=== PATIENT | female | born 1950 | race Caucasian/White ===

== ENCOUNTER 2016-03-30 09:48 | Emergency (ER) | payer MEDICARE ==
[2016-03-30 12:24] LABS: Hematocrit 42 % (35-47); Hemoglobin 14.1 g/dl (12.0-16.0); Mean Corpuscular HGB Conc 33 g/dl (31-36); Mean Corpuscular Hemoglobin 30 pg (27-31); Mean Corpuscular Volume 91 fL (80-97); Mean Platelet Volume 9 um3 (7.4-10.4); Red Blood Count 4.67 10^6/ul (4.0-5.4); Red Cell Distribution Width 14 % (10.5-15); White Blood Count 7.9 10^3/ul (3.5-10.8)
[2016-03-30 12:34] LABS: BUN/Creatinine Ratio 10.1 (8-20); Calcium 9.4 mg/dL (8.6-10.3); EGFR African American 72.4 (>60); EGFR Non-African American 56.3 (>60); Globulin 3.5 g/dL (2-4); Magnesium 2.2 mg/dL (1.9-2.7); Total Bilirubin 0.5 mg/dL (0.2-1.0); Total Protein 7.5 g/dL (6.4-8.9)
[2016-03-30 12:36] LABS: Troponin I 0.01 ng/mL (<0.04)
[2016-03-30 12:43] LABS: TSH (Thyroid Stimulating Horm) 2.22 mcIU/mL (0.34-5.60)
[2016-03-30 13:55] VITALS: BP 122/60
--- NOTE | 2016-03-31 07:46 | ED ---
Santo Wyatt Adam, scribed for Sony Fox MD on 03/30/16 at 1201 . Palpitations / Dysrhythmia - HPI Summary HPI Summary: Pt is a 65 year old female presenting with an episode of palpitations last night. She went to bed at 23:30 last night and as she lied down she states that she felt her heart racing and beating irregularly. After 30 minutes of continued palpitations she called Family Medicine and was told to check her pulse, which was in the 70's. The pt was able to fall back asleep and when she woke up this morning she did not feel any palpitations. She called her doctor again in the morning and was told that she should come to the hospital for a heart evaluation. She denies any lightheadedness, diaphoresis, CP, SOB, or nausea. Pt has a sinus infection and has been taking azithromycin. She has taken 3 doses so far and has 2 remaining. PMHx of GERD. FMHx of DM and HTN. - History of Current Complaint Chief Complaint: EDDysrhythmPalp Time Seen by Provider: 03/30/16 11:47 Hx Obtained From: Patient Onset/Duration: Sudden Onset, Lasting Minutes, Resolved Severity Initially: Moderate Severity Currently: None Character: Fast, Irregular, Pounding Aggravating: Nothing Alleviating: Rest Associated Signs & Symptoms: Negative - Allergy/Home Medications Allergies/Adverse Reactions: Allergies Allergy/AdvReac Type Severity Reaction Status Date / Time Amoxicillin Allergy Mild Rash Verified 06/28/15 09:26 Codeine AdvReac Severe made her Verified 06/28/15 09:26 hyper PMH/Surg Hx/FS Hx/Imm Hx Endocrine/Hematology History: Denies: Hx Diabetes Cardiovascular History: Denies: Hx Hypertension, Hx Pacemaker/ICD GI History: Reports: Hx Gall Bladder Disease, Hx Gastroesophageal Reflux Disease History: Denies: Hx Renal Disease Musculoskeletal History: Reports: Hx Arthritis, Hx Back Problems Sensory History: Reports: Hx Cataracts, Hx Contacts or Glasses Denies: Hx Hearing Aid Opthamlomology History: Reports: Hx Cataracts, Hx Contacts or Glasses Neurological History: Reports: Hx Migraine, Other Neuro Impairments/Disorders - PAIN CLINIC PT Psychiatric History: Denies: Hx Panic Disorder - Cancer History Hx Chemotherapy: No Hx Radiation Therapy: No - Surgical History Surgery Procedure, Year, and Place: 1994 LOW BACK SURGERY L5 DISCECTOMY, [place]. 1989 OPEN CHOLECYSTECTOMY, [facility] [place]. 2009 RIGHT KNEE ARTHROSCOPIC SURGERY , [facility] [place]. 2010 LEFT EYE CATARACTS, [facility] [place] Hx Anesthesia Reactions: No Infectious Disease History: No Infectious Disease History: Denies: Traveled Outside the [place] in Last 30 Days - Family History Known Family History: Positive: Hypertension, Diabetes, Other - Breast CA - Social History Occupation: Retired Lives: With Family - Alcohol Use: Occasionally Hx Substance Use: No Substance Use Type: Reports: None Substance Use Comment - Amount & Last Used: oxycodone Hx Tobacco Use: No Smoking Status (MU): Never Smoked Tobacco Review of Systems Negative: Fever, Skin Diaphoresis Positive: Palpitations. Negative: Chest Pain Negative: Shortness Of Breath Positive: Nausea All Other Systems Reviewed And Are Negative: Yes Physical Exam Triage Information Reviewed: Yes Vital Signs On Initial Exam: Initial Vitals Temp Pulse Resp BP Pulse Ox 97.6 F 88 16 152/89 99 03/30/16 09:54 03/30/16 09:54 03/30/16 09:54 03/30/16 09:54 03/30/16 09:54 Vital Signs Reviewed: Yes Appearance: Positive: Well-Appearing, No Pain Distress Skin: Positive: Warm, Skin Color Reflects Adequate Perfusion, Dry Head/Face: Positive: Normal Head/Face Inspection Eyes: Positive: Normal ENT: Positive: Normal ENT inspection Neck: Positive: Supple, Nontender Respiratory/Lung Sounds: Positive: Clear to Auscultation, Breath Sounds Present Cardiovascular: Positive: RRR Abdomen Description: Positive: Nontender, Soft Bowel Sounds: Positive: Present Musculoskeletal: Positive: Normal Neurological: Positive: Normal Psychiatric: Positive: Normal, Affect/Mood Appropriate - [place] Coma Scale Coma Scale Total: 15 Diagnostics - Vital Signs Vital Signs Temp Pulse Resp BP Pulse Ox 03/30/16 09:54 97.6 F 88 16 152/89 99 - Laboratory Lab Results: Lab Results 03/30/16 03/30/16 03/30/16 Range/Units 11:30 11:30 11:30 WBC 7.9 (3.5-10.8) 10^3/ul RBC 4.67 (4.0-5.4) 10^6/ul Hgb 14.1 (12.0-16.0) g/dl Hct 42 (35-47) % MCV 91 (80-97) fL MCH 30 (27-31) pg MCHC 33 (31-36) g/dl RDW 14 (10.5-15) % Plt Count 299 (150-450) 10^3/ul MPV 9 (7.4-10.4) um3 Neut % (Auto) 62.3 (38-83) % Lymph % (Auto) 28.3 (25-47) % [place] % (Auto) 7.7 (1-9) % Eos % (Auto) 0.8 (0-6) % Baso % (Auto) 0.9 (0-2) % Absolute Neuts (auto) 4.9 (1.5-7.7) 10^3/ul Absolute Lymphs (auto) 2.2 (1.0-4.8) 10^3/ul Absolute Monos (auto) 0.6 (0-0.8) 10^3/ul Absolute Eos (auto) 0.1 (0-0.6) 10^3/ul Absolute Basos (auto) 0.1 (0-0.2) 10^3/ul Absolute Nucleated RBC 0.01 10^3/ul Nucleated RBC % 0.1 Sodium 142 (133-145) mmol/L Potassium 4.0 (3.5-5.0) mmol/L Chloride 110 (101-111) mmol/L Carbon Dioxide 27 (22-32) mmol/L Anion Gap 5 (2-11) mmol/L BUN 10 (6-24) mg/dL Creatinine 0.99 H (0.51-0.95) mg/dL Est GFR ( Amer) 72.4 (>60) Est GFR (Non-Af Amer) 56.3 (>60) BUN/Creatinine Ratio 10.1 (8-20) Glucose 90 (70-100) mg/dL Lactic Acid 1.1 (0.5-2.0) mmol/L Calcium 9.4 (8.6-10.3) mg/dL Magnesium 2.2 (1.9-2.7) mg/dL Total Bilirubin 0.50 (0.2-1.0) mg/dL AST 19 (13-39) U/L ALT 18 (7-52) U/L Alkaline Phosphatase 58 (34-104) U/L Troponin I 0.01 (<0.04) ng/mL Total Protein 7.5 (6.4-8.9) g/dL Albumin 4.0 (3.2-5.2) g/dL Globulin 3.5 (2-4) g/dL Albumin/Globulin Ratio 1.1 (1-3) TSH 2.22 (0.34-5.60) mcIU/mL Result Diagrams: 03/30/16 11:30 03/30/16 11:30 Lab Statement: Any lab studies that have been ordered have been reviewed, and results considered in the medical decision making process. - EKG 09:55 Cardiac Rate: NL - 74 BPM EKG Rhythm: Sinus Rhythm - Normal - Additional Comments Diagnostic Additional Comments: Troponin I - 0.01 Course/Dx - Course Course Of Treatment: Henrietta Patten presented having had palpitations last night in the context of taking azithromycin for a sinus infection which is improving. She was monitored here and her W/U including troponin was negative. Zithromax can cause palpitations and I recommended switching antibiotics to Cipro. - Diagnoses Provider Diagnoses: Medication reaction Discharge - Discharge Plan Condition: Stable Disposition: HOME Prescriptions: Cefpodoxime Proxetil 200 mg PO BID #[id number] souleymane Patient Education Materials: Antibiotic Medication Allergy (ED) Referrals: Abdelrahman Ponce MD [Primary Care Provider] - Additional Instructions: Follow up with Dr. Ponce. The documentation as recorded by the Santo jara Adam accurately reflects the service I personally performed and the decisions made by me, Sony Fox MD.
== END 2016-03-30 13:54 | disposition home or self-care (01) ==
LOC: ED 09:48
DX: T36.3X5A Adverse effect of macrolides, initial encounter (principal); R00.2 Palpitations; R11.0 Nausea; Y92.9 Unspecified place or not applicable; Z87.19 Personal history of other diseases of the digestive system
CPT/HCPCS: 36415; 80053; 83605; 83735; 84443; 84484; 85025; 93005; 99282

== ENCOUNTER 2016-04-02 03:56 | Emergency (ER) | payer MEDICARE ==
[2016-04-02] MEDS ORDERED: Albuterol/Ipratropium NEB.SOL* Albuterol 2.5 MG/Ipratropium 0.5 MG 3 ML ONE (05:01)
[2016-04-02] MEDS ORDERED: Aspirin Low Dose CHEW TAB* 81 MG PO ONE (05:01)
[2016-04-02] MEDS ORDERED: Albuterol/Ipratropium NEB.SOL* Albuterol 2.5 MG/Ipratropium 0.5 MG 3 ML INH ONE (05:06)
[2016-04-02] MEDS ORDERED: guaiFENesin/CODIEN 100MG-10MG* 5 ML UDC PO ONE (05:06)
[2016-04-02] MEDS ORDERED: guaiFENesin LIQ* 100 MG/5 ML UDC PO ONE (06:09)
[2016-04-02] MEDS ORDERED: guaiFENesin LIQ* 100 MG/5 ML UDC ONE (06:12)
[2016-04-02] MEDS ORDERED: Levofloxacin TAB* 500 MG PO ONE (06:35)
[2016-04-02 06:55] LABS: Hematocrit 41 % (35-47); Hemoglobin 13.5 g/dl (12.0-16.0); Mean Corpuscular HGB Conc 33 g/dl (31-36); Mean Corpuscular Hemoglobin 30 pg (27-31); Mean Corpuscular Volume 91 fL (80-97); Mean Platelet Volume 9 um3 (7.4-10.4); Red Blood Count 4.48 10^6/ul (4.0-5.4); Red Cell Distribution Width 14 % (10.5-15); White Blood Count 11.8 10^3/ul (3.5-10.8)
[2016-04-02 07:04] LABS: Urine Bacteria 1+ (Absent); Urine Bilirubin Negative (Negative); Urine Glucose Negative (Negative); Urine Nitrite Negative (Negative)
[2016-04-02 07:13] LABS: Albumin 3.8 g/dL (3.2-5.2); BUN/Creatinine Ratio 11.9 (8-20); EGFR African American 64.8 (>60); EGFR Non-African American 50.4 (>60); Globulin 3.2 g/dL (2-4); Potassium 3.2 mmol/L (3.5-5.0); Total Bilirubin 0.6 mg/dL (0.2-1.0)
[2016-04-02 07:15] LABS: Troponin I 0.01 ng/mL (<0.04)
--- NOTE | 2016-04-02 07:59 | RAD ---
INDICATION: Shortness of breath. COMPARISON: Chest x-ray dated September 29, 2011 TECHNIQUE: Single AP portable view of the chest was obtained. FINDINGS: Image quality is compromised due to the relative inferiority of a portable chest x-ray. The heart and mediastinum exhibit normal size and contour. There is mild calcification at the arch of the aorta. The lungs are grossly clear. There is no evidence of a large pleural effusion. Visualized bones are normal for the patient's age. IMPRESSION: No radiographic evidence for acute cardiopulmonary abnormality on this portable chest x-ray.
[2016-04-02 08:54] VITALS: BP 120/70
--- NOTE | 2016-04-02 14:58 | ED ---
Cooper Wyatt Matthew, scribed for Terrance Yanez MD on 04/02/16 at 0828 . Progress - Progress Note Progress Note: Sign out by Dr. Rivera c/o of cough, sob, and wheezing in the middle of the night. Was administered bronchodilators, cough medicine, albuterol, and Levaquin. Patient is feeling better. CXR reveals no pneumonia. Labs showed normal d-dimer and normal troponin. NO effusion, no sinus tenderness, oral mucosa dry, post nasal drip noted. Heart regular. Lungs show rhonchi and wheezing. Discussed discharge patient and will switch Abx to Levaquin 500mg daily for 10 days, add albuterol inhaler 2 puffs 4 times daily, and a 5 day course of prednisone. The patient is in stable condition and will be discharged home. Course/Dx - Diagnoses Provider Diagnoses: Acute asthmatic bronchitis, Sinusitis The documentation as recorded by the harshibCooper paul Matthew accurately reflects the service I personally performed and the decisions made by , Terrance Yanez MD.
--- NOTE | 2016-04-30 23:24 | ED ---
Manny Wyatt Aidan, scribed for Simon Rivera on 04/02/16 at 0502 . Throat Pain/Nasal Congestion - HPI Summary HPI Summary: 65 y/o female presents to the ED with a complaint of an acute, constant, moderate, productive cough that produces thick, clear phlegm and chest discomfort. Associated symptoms include congestion in the lungs, SOB, and a sore throat. Pt denies any swelling in the legs or fever. 6 days ago, she was diagnosed with a sinus infection. Pt does not smoke. - History of Current Complaint Chief Complaint: EDShortnessOfBreath Time Seen by Provider: 04/02/16 04:50 Hx Obtained From: Patient Onset/Duration: Sudden Onset, Lasting Days, Still Present Severity: Moderate Associated Signs And Symptoms: Negative: Negative - congestion in the lungs, SOB , and sore throat, chest discomfort from coughing too much Cough: Productive - producing thick, clear phlegm - Epiglottits Risk Factors Epiglottis Risk Factors: Negative - Allergies/Home Medications Allergies/Adverse Reactions: Allergies Allergy/AdvReac Type Severity Reaction Status Date / Time Amoxicillin Allergy Mild Rash Verified 06/28/15 09:26 Erythromycin Allergy Palpitation Verified 04/02/16 04:30 s Codeine AdvReac Severe made her Verified 06/28/15 09:26 hyper PMH/Surg Hx/FS Hx/Imm Hx Endocrine/Hematology History: Denies: Hx Diabetes Cardiovascular History: Denies: Hx Hypertension, Hx Pacemaker/ICD GI History: Reports: Hx Gall Bladder Disease, Hx Gastroesophageal Reflux Disease History: Denies: Hx Renal Disease Musculoskeletal History: Reports: Hx Arthritis, Hx Back Problems Sensory History: Reports: Hx Cataracts, Hx Contacts or Glasses Denies: Hx Hearing Aid Opthamlomology History: Reports: Hx Cataracts, Hx Contacts or Glasses Neurological History: Reports: Hx Migraine, Other Neuro Impairments/Disorders - PAIN CLINIC PT Psychiatric History: Denies: Hx Panic Disorder - Cancer History Hx Chemotherapy: No Hx Radiation Therapy: No - Surgical History Surgery Procedure, Year, and Place: 1994 LOW BACK SURGERY L5 DISCECTOMY, [place]. 1989 OPEN CHOLECYSTECTOMY, [facility]. 2009 RIGHT KNEE ARTHROSCOPIC SURGERY , [facility]. 2010 LEFT EYE CATARACTS, [facility] Hx Anesthesia Reactions: No Infectious Disease History: No Infectious Disease History: Denies: Traveled Outside the [place] in Last 30 Days - Family History Known Family History: Positive: Hypertension, Diabetes, Other - Breast CA - Social History Occupation: Retired Lives: With Family Alcohol Use: Occasionally Hx Substance Use: No Substance Use Type: Reports: None Substance Use Comment - Amount & Last Used: oxycodone Hx Tobacco Use: No Smoking Status (MU): Never Smoked Tobacco Review of Systems Constitutional: Negative Eyes: Negative Positive: Sore Throat. Negative: Epistaxis, Dental Pain, Ear Ache, Nasal Discharge Cardiovascular: Negative Positive: Shortness Of Breath, Cough, Other - congestion in the lungs, chest discomfort from coughing so much Gastrointestinal: Negative Genitourinary: Negative Musculoskeletal: Negative Skin: Negative Neurological: Negative Psychological: Normal All Other Systems Reviewed And Are Negative: Yes Physical Exam Triage Information Reviewed: Yes Vital Signs On Initial Exam: Initial Vitals Temp Pulse Resp BP Pulse Ox 97.8 F 88 24 151/87 100 04/02/16 04:01 04/02/16 04:01 04/02/16 04:01 04/02/16 04:01 04/02/16 04:01 Vital Signs Reviewed: Yes Appearance: Positive: Well-Appearing, No Pain Distress Skin: Positive: Warm, Skin Color Reflects Adequate Perfusion, Dry Head/Face: Positive: Normal Head/Face Inspection Eyes: Positive: EOMI, GAYLA ENT: Positive: Normal ENT inspection Neck: Positive: Supple, Nontender Respiratory/Lung Sounds: Positive: Clear to Auscultation, Breath Sounds Present Cardiovascular: Positive: RRR, Pulses are Symmetrical in both Upper and Lower Extremities Abdomen Description: Positive: Nontender, Soft Bowel Sounds: Positive: Present Musculoskeletal: Positive: Strength/ROM Intact Neurological: Positive: Sensory/Motor Intact, Alert, Oriented to Person Place, Time Psychiatric: Positive: Affect/Mood Appropriate AVPU Assessment: Alert Diagnostics - Vital Signs Vital Signs Temp Pulse Resp BP Pulse Ox 04/02/16 04:03 97.8 F 88 24 151/78 100 04/02/16 04:01 97.8 F 88 24 151/87 100 - Laboratory Lab Statement: Any lab studies that have been ordered have been reviewed, and results considered in the medical decision making process. EENT Course/Dx - Course Course Of Treatment: This is a 65 y/o female with an acute, constant, moderate, productive cough that produces thick, clear phlegm and chest discomfort. Associated symptoms include congestion in the lungs, SOB, and a sore throat. Pt denies any swelling in the legs or fever. 6 days ago, she was diagnosed with a sinus infection. Pt does not smoke. The patient will be diagnosed with dyspnea and pneumonia and she will be signed out to Dr. Yanez to follow up with labs. - Diagnoses Provider Diagnoses: Dyspnea, Pneumonia Discharge - Discharge Plan Condition: Stable Disposition: OTHER Discharge Disposition Comment: The patient will be signed out to Dr. Yanez to follow up on labs. Patient Education Materials: Dyspnea (ED), Pneumonia (ED) The documentation as recorded by the Manny jara Aidan accurately reflects the service I personally performed and the decisions made by Nicole hart Emmanuel.
== END 2016-04-02 08:51 | disposition home or self-care (01) ==
LOC: ED 03:56
DX: J45.909 Unspecified asthma, uncomplicated (principal); J32.9 Chronic sinusitis, unspecified; Z88.0 Allergy status to penicillin; Z88.5 Allergy status to narcotic agent
CPT/HCPCS: 36415; 71010; 80053; 81003; 81015; 83880; 84484; 85025; 85379; 85610; 85730; 87086; 87502; 93005; 94640; 94760; 99282; A9270-GY

== ENCOUNTER 2016-04-05 04:55 | Inpatient (IN) | payer MEDICARE ==
[2016-04-05] MEDS ORDERED: Albuterol/Ipratropium NEB.SOL* Albuterol 2.5 MG/Ipratropium 0.5 MG 3 ML INH ONE (05:15)
[2016-04-05] MEDS ORDERED: Aspirin Low Dose CHEW TAB* 81 MG PO ONE (05:15)
[2016-04-05] MEDS ORDERED: Ketorolac INJ* 30 MG/ML 1 ML VIAL IV ONE (05:15)
[2016-04-05] MEDS ORDERED: Ondansetron INJ* 2 MG/ML VIAL IV ONE (05:15)
[2016-04-05] MEDS ORDERED: Iodixanol* (CONTRAST) 320 MG/ML 100 ML SDV IV ONE ×2 (05:37→06:38)
[2016-04-05] MEDS ORDERED: Albuterol 2.5 MG/3 ML NEB.SOL* (0.083%) ONE (05:53)
[2016-04-05] MEDS ORDERED: Ipratropium 0.5MG/2.5ML NEB* 0.5 MG/2.5 ML NEB.SOLN ONE (05:57)
[2016-04-05 05:59] LABS: Hematocrit 45 % (35-47); Hemoglobin 14.7 g/dl (12.0-16.0); Mean Corpuscular HGB Conc 33 g/dl (31-36); Mean Corpuscular Hemoglobin 30 pg (27-31); Mean Corpuscular Volume 90 fL (80-97); Mean Platelet Volume 9 um3 (7.4-10.4); Red Blood Count 4.94 10^6/ul (4.0-5.4); Red Cell Distribution Width 14 % (10.5-15); White Blood Count 14.1 10^3/ul (3.5-10.8)
[2016-04-05 06:12] LABS: Albumin 4.1 g/dL (3.2-5.2); BUN/Creatinine Ratio 12.4 (8-20); Calcium 9.6 mg/dL (8.6-10.3); EGFR African American 62.1 (>60); EGFR Non-African American 48.3 (>60); Globulin 3.7 g/dL (2-4); Potassium 3.4 mmol/L (3.5-5.0); Total Bilirubin 0.4 mg/dL (0.2-1.0); Total Protein 7.8 g/dL (6.4-8.9)
[2016-04-05 06:24] LABS: Troponin I 0.04 ng/mL (<0.04)
[2016-04-05] MEDS ORDERED: Aspirin TAB* 325 MG PO ONE (07:06)
--- NOTE | 2016-04-05 07:10 | ED ---
Xin Wyatt SooYoung, scribed for NicoleSimon on 04/05/16 at 0515 . Respiratory - HPI Summary HPI Summary: Pt is a 65 y/o F who presents with worsening URI sx. Pt was seen by Dr. Rivera in ED three days ago for same sx. She states that currently, she's having difficulty breathing due to nasal congestion. Associated sx: BISHOP, leg pain, abd pain. She says she hasn't slept the past two nights. PSHx: gallbladder removal. - History of Current Complaint Stated Complaint: FLU LIKE SYMPTOMS Hx Obtained From: Patient Onset/Duration: Lasting Days, Still Present - Allergy/Home Medications Allergies/Adverse Reactions: Allergies Allergy/AdvReac Type Severity Reaction Status Date / Time Amoxicillin Allergy Mild Rash Verified 06/28/15 09:26 Erythromycin Allergy Palpitation Verified 04/02/16 04:30 s Codeine AdvReac Severe made her Verified 06/28/15 09:26 hyper PMH/Surg Hx/FS Hx/Imm Hx Previously Healthy: No Endocrine/Hematology History: Denies: Hx Diabetes Cardiovascular History: Denies: Hx Hypertension, Hx Pacemaker/ICD GI History: Reports: Hx Gall Bladder Disease, Hx Gastroesophageal Reflux Disease History: Denies: Hx Renal Disease Musculoskeletal History: Reports: Hx Arthritis, Hx Back Problems Sensory History: Reports: Hx Cataracts, Hx Contacts or Glasses Denies: Hx Hearing Aid Opthamlomology History: Reports: Hx Cataracts, Hx Contacts or Glasses Neurological History: Reports: Hx Migraine, Other Neuro Impairments/Disorders - PAIN CLINIC PT Psychiatric History: Denies: Hx Panic Disorder - Cancer History Hx Chemotherapy: No Hx Radiation Therapy: No - Surgical History Surgery Procedure, Year, and Place: 1994 LOW BACK SURGERY L5 DISCECTOMY, [place]. 1989 OPEN CHOLECYSTECTOMY, [facility] [place]. 2009 RIGHT KNEE ARTHROSCOPIC SURGERY , [facility] [place]. 2010 LEFT EYE CATARACTS, [facility] [place] Hx Anesthesia Reactions: No - Family History Known Family History: Positive: Hypertension, Diabetes, Other - Breast CA - Social History Occupation: Retired Lives: With Family Alcohol Use: Occasionally Hx Substance Use: No Substance Use Type: Reports: None Substance Use Comment - Amount & Last Used: oxycodone Hx Tobacco Use: No Smoking Status (MU): Never Smoked Tobacco Review of Systems Positive: Other - POS: NASAL CONGESTION Positive: Other - DIFFICULTY BREATHING DUE TO NASAL CONGESTION Positive: Abdominal Pain Positive: Other - POS: DIFFUSE LEG PAIN Positive: Headache All Other Systems Reviewed And Are Negative: Yes Physical Exam Triage Information Reviewed: Yes Vital Signs On Initial Exam: Initial Vitals Temp Pulse Resp BP Pulse Ox 99.0 F 99 22 125/78 96 04/05/16 04:57 04/05/16 04:57 04/05/16 04:57 04/05/16 04:57 04/05/16 04:57 Vital Signs Reviewed: Yes Appearance: Positive: Well-Appearing, No Pain Distress Skin: Positive: Warm, Skin Color Reflects Adequate Perfusion, Dry Head/Face: Positive: Normal Head/Face Inspection Eyes: Positive: EOMI, GAYLA ENT: Positive: Normal ENT inspection Neck: Positive: Supple, Nontender Respiratory/Lung Sounds: Positive: Wheezes Cardiovascular: Positive: RRR, Pulses are Symmetrical in both Upper and Lower Extremities Abdomen Description: Positive: Soft, Other: - TENDERNESS AT UMBILICAL Bowel Sounds: Positive: Present Musculoskeletal: Positive: Normal, Strength/ROM Intact - 4XFROM Neurological: Positive: Normal, Sensory/Motor Intact, Alert, Oriented to Person Place, Time Diagnostics - Vital Signs Vital Signs Temp Pulse Resp BP Pulse Ox 04/05/16 05:04 104 125/78 97 04/05/16 05:03 88 95 04/05/16 04:57 99.0 F 99 22 125/78 96 - Laboratory Lab Results: Lab Results 04/05/16 04/05/16 04/05/16 Range/Units 05:30 05:30 05:30 WBC 14.1 H (3.5-10.8) 10^3/ul RBC 4.94 (4.0-5.4) 10^6/ul Hgb 14.7 (12.0-16.0) g/dl Hct 45 (35-47) % MCV 90 (80-97) fL MCH 30 (27-31) pg MCHC 33 (31-36) g/dl RDW 14 (10.5-15) % Plt Count 293 (150-450) 10^3/ul MPV 9 (7.4-10.4) um3 Neut % (Auto) 81.8 (38-83) % Lymph % (Auto) 11.4 L (25-47) % [place] % (Auto) 6.1 (1-9) % Eos % (Auto) 0.3 (0-6) % Baso % (Auto) 0.4 (0-2) % Absolute Neuts (auto) 11.5 H (1.5-7.7) 10^3/ul Absolute Lymphs (auto) 1.6 (1.0-4.8) 10^3/ul Absolute Monos (auto) 0.9 H (0-0.8) 10^3/ul Absolute Eos (auto) 0 (0-0.6) 10^3/ul Absolute Basos (auto) 0.1 (0-0.2) 10^3/ul Absolute Nucleated RBC 0.01 10^3/ul Nucleated RBC % 0 D-Dimer, Quantitative (Less Than 230) ng/mL Sodium 137 (133-145) mmol/L Potassium 3.4 L (3.5-5.0) mmol/L Chloride 103 (101-111) mmol/L Carbon Dioxide 24 (22-32) mmol/L Anion Gap 10 (2-11) mmol/L BUN 14 (6-24) mg/dL Creatinine 1.13 H (0.51-0.95) mg/dL Est GFR ( Amer) 62.1 (>60) Est GFR (Non-Af Amer) 48.3 (>60) BUN/Creatinine Ratio 12.4 (8-20) Glucose 87 (70-100) mg/dL Lactic Acid 1.1 (0.5-2.0) mmol/L Calcium 9.6 (8.6-10.3) mg/dL Total Bilirubin 0.40 (0.2-1.0) mg/dL AST 18 (13-39) U/L ALT 15 (7-52) U/L Alkaline Phosphatase 64 (34-104) U/L Troponin I 0.04 H* (<0.04) ng/mL B-Natriuretic Peptide ( - 100) pg/mL Total Protein 7.8 (6.4-8.9) g/dL Albumin 4.1 (3.2-5.2) g/dL Globulin 3.7 (2-4) g/dL Albumin/Globulin Ratio 1.1 (1-3) Lipase 19 (11.0-82.0) U/L 04/05/16 04/05/16 Range/Units 05:30 05:30 WBC (3.5-10.8) 10^3/ul RBC (4.0-5.4) 10^6/ul Hgb (12.0-16.0) g/dl Hct (35-47) % MCV (80-97) fL MCH (27-31) pg MCHC (31-36) g/dl RDW (10.5-15) % Plt Count (150-450) 10^3/ul MPV (7.4-10.4) um3 Neut % (Auto) (38-83) % Lymph % (Auto) (25-47) % [place] % (Auto) (1-9) % Eos % (Auto) (0-6) % Baso % (Auto) (0-2) % Absolute Neuts (auto) (1.5-7.7) 10^3/ul Absolute Lymphs (auto) (1.0-4.8) 10^3/ul Absolute Monos (auto) (0-0.8) 10^3/ul Absolute Eos (auto) (0-0.6) 10^3/ul Absolute Basos (auto) (0-0.2) 10^3/ul Absolute Nucleated RBC 10^3/ul Nucleated RBC % D-Dimer, Quantitative 261 H (Less Than 230) ng/mL Sodium (133-145) mmol/L Potassium (3.5-5.0) mmol/L Chloride (101-111) mmol/L Carbon Dioxide (22-32) mmol/L Anion Gap (2-11) mmol/L BUN (6-24) mg/dL Creatinine (0.51-0.95) mg/dL Est GFR ( Amer) (>60) Est GFR (Non-Af Amer) (>60) BUN/Creatinine Ratio (8-20) Glucose (70-100) mg/dL Lactic Acid (0.5-2.0) mmol/L Calcium (8.6-10.3) mg/dL Total Bilirubin (0.2-1.0) mg/dL AST (13-39) U/L ALT (7-52) U/L Alkaline Phosphatase (34-104) U/L Troponin I (<0.04) ng/mL B-Natriuretic Peptide 51 ( - 100) pg/mL Total Protein (6.4-8.9) g/dL Albumin (3.2-5.2) g/dL Globulin (2-4) g/dL Albumin/Globulin Ratio (1-3) Lipase (11.0-82.0) U/L Result Diagrams: 04/05/16 05:30 04/05/16 05:30 Lab Statement: Any lab studies that have been ordered have been reviewed, and results considered in the medical decision making process. - Radiology CXR Xray Interpretation: No Acute Changes Radiology Interpretation Completed By: ED Physician Disposition - Course Course Of Treatment: MDM: A 65 y/o F presents with nasal congestion, BISHOP, abd and leg pain for past few days. Pt was seen three days ago in ED. Ordered Toradol and Zofran. Blood work shows elevated D-dimer. Trop at [address] of chest/abd/pelv is pending. - Diagnoses Provider Diagnoses: Abdominal pain, Ruled out PE, SOB (shortness of breath), ACS (acute coronary syndrome) - Physician Notifications Discussed Care Of Patient With: Dr. Whitaker, hospitalist Time Discussed With Above Provider: 06:50 Instructed by Provider To: Admit As Inpatient Discharge - Discharge Plan Condition: Stable Disposition: ADMITTED TO [facility] Referrals: Abdelrahman Ponce MD [Primary Care Provider] - The documentation as recorded by the Xin jara SooYoung accurately reflects the service I personally performed and the decisions made by , Simon Rivera.
--- NOTE | 2016-04-05 08:04 | RAD ---
INDICATION: Shortness of breath. COMPARISON: Chest x-ray dated April 02, 2016 TECHNIQUE: Single AP portable view of the chest was obtained. FINDINGS: Image quality is compromised due to the relative inferiority of a portable chest x-ray. The heart and mediastinum exhibit normal size and contour. There is mild peribronchial cuffing seen overlying the upper right hilum. The lungs are grossly clear. There is no evidence of a large pleural effusion. Visualized bones are normal for the patient's age. IMPRESSION: Mild peribronchial cuffing progressed since the previous chest x-ray can be seen in inflammatory lung disease.
--- NOTE | 2016-04-05 08:08 | RAD ---
HISTORY: Chest pain, shortness of breath COMPARISONS: None TECHNIQUE: Multiple contiguous axial CT scans of the chest were obtained after the administration of nonionic intravenous contrast, timed to the pulmonary arterial phase of contrast enhancement.. Coronal and sagittal multiplanar reformations are also submitted for review. FINDINGS: NECK AND THYROID: The lower neck and thyroid are unremarkable. CHEST WALL: There is no lower cervical, axillary, or supraclavicular lymphadenopathy by size criteria. HEART AND PERICARDIUM: The heart is unremarkable. AORTA AND PULMONARY VASCULATURE: There is no pulmonary arterial filling defect to suggest pulmonary embolism. There is no linear filling defect within the aorta to suggest aortic dissection. MEDIASTINUM: There is no mediastinal lymphadenopathy by size criteria. JACK: There is no hilar lymphadenopathy by size criteria. AIRWAY AND ESOPHAGUS: There is mild bibasilar bronchiectasis. There is peribronchial thickening, with occasional effacement of the distal airway presumably by mucus plugging, best seen on axial image 144 of series 4 in the right lower lobe LUNG PARENCHYMA: Is minimal dependent atelectasis in the right lung base. PLEURA: No pleural abnormalities are noted. UPPER ABDOMEN: The upper abdomen is unremarkable. BONES AND SOFT TISSUES: No bone or soft tissue abnormalities are noted. OTHER: None. IMPRESSION: 1. NO PULMONARY ARTERIAL FILLING DEFECT TO SUGGEST PULMONARY EMBOLISM. 2. MILD BIBASILAR BRONCHIECTASIS WITH PERIBRONCHIAL THICKENING AND MINIMAL MUCOUS PLUGGING..
[2016-04-05] MEDS ORDERED: Albuterol/Ipratropium NEB.SOL* Albuterol 2.5 MG/Ipratropium 0.5 MG 3 ML INH PRN (08:23)
[2016-04-05] MEDS ORDERED: Potassium Chlor TAB* 20 MEQ TAB.ER PO ONE (08:24)
[2016-04-05 08:31] LABS: Budding Yeast Present (Absent); Urine Bacteria 1+ (Absent); Urine Bilirubin Negative (Negative); Urine Glucose Negative (Negative); Urine Nitrite Negative (Negative)
[2016-04-05 08:45] LABS: Magnesium 1.9 mg/dL (1.9-2.7)
[2016-04-05] MEDS ORDERED: Fluticasone NASAL SPRAY 50MCG* 16 gm SPRAY BTL BOTH NARES SCH (09:00)
[2016-04-05] MEDS ORDERED: Oxymetazoline 0.05% NASAL SPR* 15 ML BTL BOTH NARES SCH (09:00)
[2016-04-05] MEDS: NS 0.9% 1000 ML* 1,000 ML IV SCH ×2 (09:15→21:18)
[2016-04-05] MEDS: Levofloxacin 500 MG IVPREMIX(* 500 MG/100 ML BAG IVPB SCH (09:15)
[2016-04-05] MEDS: Aspirin EC Low Dose* 81 MG TAB.EC PO SCH (09:17)
[2016-04-05] MEDS: guaiFENesin ER TAB 600 MG PO SCH ×2 (09:17→20:21)
[2016-04-05] MEDS: Lactobacillus Acidophilu (GG)* 1 CAP CAP PO SCH (09:32)
--- NOTE | 2016-04-05 09:44 | RAD ---
Indication: Abdominal pain, diverticulitis. CT of the abdomen and pelvis was performed after IV contrast administration. Coronal and sagittal reconstructed images were obtained. Administered 97.0 ml of VISAPAQUE 320 mgi/ml was given according to hospital protocol. The lung bases demonstrate no pleural fluid, nodules or masses. Heart is of normal size without evidence of pericardial effusion. The liver is normal in size. No focal lesions or intrahepatic duct dilatation is noted. The patient is status post cholecystectomy. The spleen is normal in size. The pancreas demonstrates no mass or pancreatic duct dilatation. The common duct is not dilated. No adrenal masses are noted. The kidneys demonstrate no hydronephrosis. No retroperitoneal lymphadenopathy is noted. No dilated loops of bowel are noted. CT of the pelvis demonstrates no retroperitoneal or pelvic lymphadenopathy. The colon is filled with stool. The uterus and ovaries are unremarkable. No hernias are noted. No dilated loops of bowel are noted. There is a defect in the anterior abdominal wall above the umbilicus in the epigastric area. There is omentum with small vessels noted in the hernia. The possibility of strangulation of the herniated omentum is not excluded. The bony structures are grossly unremarkable. Facet arthropathy at L3-4 and L4-5 is noted. IMPRESSION: 1. There is an anterior abdominal wall hernia containing omentum in the epigastric area as well as some small vascular structures. Mild infiltration of fat is noted. 2. No other masses or fluid collections are identified.
--- NOTE | 2016-04-05 11:37 | HP ---
HISTORY AND PHYSICAL: DATE OF ADMISSION: 04/05/16 PROVIDER: Malcom Cruz NP ATTENDING PHYSICIAN: Dr. Issa *(report dictated by Malcom Cruz NP). PRIMARY CARE PROVIDER: Dr. Ponce. CHIEF COMPLAINT: Worsening upper respiratory illness symptoms with complaints of productive cough, severe nasal congestion, abdominal pain, and burning with urination. HISTORY OF PRESENT ILLNESS: Ms. Patten is a 65-year-old female with a past medical history of GERD, who presents to the emergency department today with complaints of worsening upper respiratory illness symptoms, abdominal pain, and dysuria. Ms. Patten reports that she first developed a "cold" in the beginning of March and had rhinorrhea with nasal congestion for several weeks. She was diagnosed on March 27 with a sinus infection and put on either " azithromycin or erythromycin." She reports initially she felt better, then on March 30, she had palpitations and went to the emergency department where it was thought that she was having a reaction to the antibiotics and she was switched to cefpodoxime. She then returned to the emergency department on April 02, with worsening upper respiratory illness symptoms with cough, shortness of breath, wheezing, and was switched to Levaquin and put on prednisone 5-day course. Ms. Patten then reports that initially she felt better for a day, then returns today with worsening upper respiratory illness symptoms, biggest complaint is nasal congestion and that she cannot sleep for the past 2 days. She also reports burning with urination, generalized body aches, and abdominal "soreness." She reports that she has not been able to sleep since starting the prednisone. She denies fever, but reports chills. Decreased appetite, but has been able to drink fluids. No nausea, vomiting, or diarrhea. Denies sore throat or ear pain. Reports productive cough with thick white sputum. The patient denies chest pain or shortness of breath. The patient reports that she has been using her albuterol inhaler since prescribed 3 days ago and has been using it b.i.d. She does report relief after using the inhaler. The patient reports that her granddaughter who she has been watching every day was diagnosed with influenza 2 days ago through Urgent Care. Hospital Medicine was asked to evaluate the patient for admission due to the patient appears to be dehydrated and has an indeterminate troponin of 0.04. PAST MEDICAL HISTORY: 1. GERD. 2. Cataracts. PAST SURGICAL HISTORY: 1. Status post cholecystectomy. 2. Low back surgery, L5 diskectomy in [place], 1994. 3. Right knee arthroscopic surgery, 2009. HOME MEDICATIONS: 1. Aspirin 81 mg p.o. daily. 2. Ibuprofen 400 mg p.o. b.i.d. p.r.n. 3. Albuterol HFA inhaler 1 to 2 puffs INH q.6 hours p.r.n. 4. Nexium 42.3 mg p.o. q.a.m. 5. Levaquin 500 mg p.o. daily, started 04/02/16. 6. Prednisone 60 mg p.o. daily x5-day course. ALLERGIES: AMOXICILLIN, ERYTHROMYCIN, CODEINE. FAMILY HISTORY: Father had coronary artery disease and diabetes. SOCIAL HISTORY: Denies history of tobacco use. Rare alcohol use. No recreational drug use. The patient is retired and lives at home with her Pablo Patten, who is her healthcare proxy, #[phone]. REVIEW OF SYSTEMS: A 14-point review of systems was performed. All the pertinent positives and negatives are mentioned in the history of present illness. All the remaining systems are negative. The patient reports headache stating she had a terrible headache this morning which now is better after being given pain medication in the emergency department. PHYSICAL EXAMINATION GENERAL APPEARANCE: A 65-year-old female, lying on the emergency department stretcher, alert and oriented x3, in no acute distress. Appears to have nasal congestion and appearing mildly ill. VITAL SIGNS: Temperature 98.0, heart rate 83, respirations 18, O2 sat 100% on room air, blood pressure 146/72. HEENT: Head is normocephalic, atraumatic. Pupils are equal and reactive to light. Oropharynx is clear. No erythema or exudate noted. Dry mucous membranes. Good dentition. NECK: No cervical or supraclavicular lymphadenopathy. CARDIAC: S1, S2. No murmurs, rubs, or gallops appreciated. No lower extremity edema. 2+ DP pulses bilaterally. RESPIRATORY: No accessory muscle use. Lungs are clear to auscultation bilaterally. Good aeration throughout. ABDOMEN: Soft, nondistended. Normal bowel sounds x4. Mild tenderness around umbilicus. No guarding. MUSCULOSKELETAL: No clubbing or cyanosis is noted. Full range of motion in all extremities. Strength is 5/5 throughout. NEURO: Cranial nerves II through XII are intact. Moves all extremities equally. Sensation to lower extremities intact to light touch. PSYCH: Alert and oriented x3. SKIN: No rashes, lesions, or open wounds noted. DIAGNOSTIC STUDIES/LAB DATA: WBC is 14.1, RBC 4.94, Hgb 14.7, Hct 45, MCV 90, MCH 30, MCHC 33, RDW 14, platelet count 293. D-dimer 261. Sodium 137, potassium 3.4, chloride 103, carbon dioxide 24, anion gap 10, BUN 14, creatinine 1.13, glucose 87, lactic acid 1.1, calcium 9.6, magnesium 1.9. Total bilirubin 0.40, AST 18, ALT 15, alkaline phosphatase 64. Troponin 0.04. BNP 51. Total protein 7.8, albumin 4.1. Lipase 19. Urinalysis: Specific gravity 1.009, 1+ blood, 3+ leukocyte esterase, 1+ bacteria, squamous epithelial cells present high, yeast high, otherwise negative. Chest x-ray, impression: Mild peribronchial cuffing progressed since the previous chest x-ray can be seen, inflammatory lung disease. Chest, thorax CTA, impression: 1. No pulmonary arterial filling defect to suggest pulmonary embolism. 2. Mild bibasilar bronchiectasis with peribronchial thickening and minimal mucus plugging. Abdomen and pelvis CT pending at the time of dictation. EKG: Sinus rhythm with a rate of 99 with multiple premature complexes noted. No acute ischemic changes noted. ASSESSMENT AND PLAN: Ms. Patten is a 65-year-old female with a past medical history of gastroesophageal reflux disease, who presents to the emergency department with complaints of worsening upper respiratory illness symptoms, abdominal pain, dysuria, noted to have indeterminate troponin, and acute kidney injury. 1. Acute Bronchitis, possible sinusitis, Influenza? I suspect the patient has a acute bronchitis with possible sinus infection and Influenza. Will continue Levaquin that the patient was started on an outpatient. Decrease prednisone to 40 mg daily. Anna p.r.nAmanda, Renetta DM, probiotic. Influenza was negative on 04/02/16. Plan to recheck influenza due to granddaughter recently being diagnosed and will treat prophylaxis due to patients exposure and her presentation with body aches and flu like symptoms. 2. Acute kidney injury, most likely secondary to dehydration. We will give the patient normal saline at 100 mL an hour x2 L and recheck labs in the morning. 3. Hypokalemia. Give replacement now. Add on magnesium. Recheck labs in the morning. 4. Indeterminate troponin. Monitor on telemetry. The patient has no chest pain, low suspicion for acute coronary syndrome. Trend troponins and EKGs. 5. Dysuria. The patient did have a urine culture from 04/02/16 that had no growth. We will send another urine culture and await results. 6. Abdominal pain. Suspect this is secondary to coughing and musculoskeletal tenderness. CT of the abdomen and pelvis is pending at the time of the dictation. 7. Gastroesophageal reflux disease. Continue PPI. 8. DVT prophylaxis. Heparin subcu. 9. Code status. Full code. 10. Hospital status. Observation. TIME SPENT: Approximately 60 minutes was spent on this admission. MALCOM CRUZ NP CC: Dr. Ponce* [id number]/CPS #: [id number] MTDD
[2016-04-05] MEDS: Heparin VIAL(*) 5000 UNITS/ML VIAL (FIVE THOUSAND) SUBCUT SCH ×2 (13:04→21:20)
[2016-04-05] MEDS: predniSONE TAB* 20 MG PO SCH (13:04)
[2016-04-05] MEDS: Benzonatate CAP* 100 MG PO PRN (13:04)
[2016-04-05] MEDS: Oseltamivir CAP* 75 MG PO SCH (13:04)
[2016-04-06] MEDS: Benzonatate CAP* 100 MG PO PRN (02:51)
[2016-04-06 05:22] LABS: BUN/Creatinine Ratio 11.5 (8-20); Blood Urea Nitrogen 12 mg/dL (6-24); CO2 Carbon Dioxide 18 mmol/L (22-32); Chloride 107 mmol/L (101-111); EGFR African American 68.4 (>60); EGFR Non-African American 53.2 (>60); Glucose 87 mg/dL (70-100); Sodium 137 mmol/L (133-145)
[2016-04-06] MEDS: Heparin VIAL(*) 5000 UNITS/ML VIAL (FIVE THOUSAND) SUBCUT SCH ×3 (05:22→21:48)
[2016-04-06] MEDS: Omeprazole CAP* 20 MG PO SCH (05:22)
[2016-04-06 07:18] LABS: Hematocrit 46 % (35-47); Mean Corpuscular HGB Conc 33 g/dl (31-36); Mean Corpuscular Hemoglobin 31 pg (27-31); Mean Corpuscular Volume 94 fL (80-97); Mean Platelet Volume 10 um3 (7.4-10.4); Red Cell Distribution Width 14 % (10.5-15); White Blood Count 14.6 10^3/ul (3.5-10.8)
--- NOTE | 2016-04-06 07:57 | PN ---
Subjective Date of Service: 04/06/16 Interval History: patient reports slight improvement today but continues to feel unwell and does not feel like she can go home. Biggest compliant is cough, malaise. reports improved appetite today. Continues to have significant nasal congestion and pressure, productive cough with thick white/greenish sputum and nasal drainage. No fevers, chills, abdominal pain, N/V/D. Denies SOB or CP. No dizziness with ambulation. Objective Active Medications: Albuterol/Ipratropium (Duoneb Neb.Flaquita*) 1 neb INH Q4H PRN PRN Reason: SOB/WHEEZING Aspirin (Aspirin Ec Low Dose*) 81 mg PO DAILY [facility] Last Admin: 04/05/16 09:17 Dose: 81 mg Benzonatate (Tessalon Cap*) 100 mg PO BID PRN PRN Reason: COUGH Last Admin: 04/06/16 02:51 Dose: 100 mg Fluticasone Propionate (Flonase Nasal [place] 50mcg*) 2 spray BOTH NARES DAILY [facility] Guaifenesin/Dextromethorphan (Robitussin Dm*) 10 ml PO Q6H PRN PRN Reason: COUGH Heparin Sodium (Porcine) (Heparin Vial(*)) 5,000 units SUBCUT Q8HR [facility] Last Admin: 04/06/16 05:22 Dose: 5,000 units Levofloxacin/Dextrose (Levaquin 500 Mg Ivpremix(*)) 500 mg in 100 mls @ 100 mls /hr IVPB Q24H [facility] Stop: 04/07/16 08:59 Last Admin: 04/05/16 09:15 Dose: 100 mls/hr Sodium Chloride (Ns 0.9% 1000 Ml*) 1,000 mls @ 100 mls/hr IV PER RATE [facility] Lactobacillus Rhamnosus (Culturelle*) 1 cap PO DAILY [facility] Last Admin: 04/05/16 09:32 Dose: 1 cap Omeprazole (Prilosec Cap*) 20 mg PO 0600 [facility] Last Admin: 04/06/16 05:22 Dose: 20 mg Oseltamivir Phosphate (Tamiflu Cap*) 75 mg PO DAILY [facility] Stop: 04/14/16 09:01 Last Admin: 04/05/16 13:04 Dose: 75 mg Prednisone (Deltasone Tab*) 40 mg PO DAILY [facility] Last Admin: 04/05/16 13:04 Dose: 40 mg Vital Signs 04/05/16 04/05/16 04/05/16 08:00 08:39 09:43 Temperature 98.0 F Pulse Rate 89 83 Respiratory 20 18 17 Rate Blood Pressure 146/72 (mmHg) O2 Sat by Pulse 95 100 Oximetry 04/05/16 04/05/16 04/05/16 11:16 15:21 19:35 Temperature 98.9 F 98.2 F Pulse Rate 83 92 93 Respiratory 16 18 Rate Blood Pressure 141/76 128/84 (mmHg) O2 Sat by Pulse 95 98 91 Oximetry 04/05/16 04/06/16 04/06/16 20:00 00:07 04:10 Temperature 98.7 F 100.4 F Pulse Rate 93 108 Respiratory 18 20 20 Rate Blood Pressure 137/76 154/82 (mmHg) O2 Sat by Pulse 94 97 Oximetry 04/06/16 07:17 Temperature 99.0 F Pulse Rate 90 Respiratory 16 Rate Blood Pressure 121/46 (mmHg) O2 Sat by Pulse 93 Oximetry Oxygen Devices in Use Now: None Appearance: 65 yo female sitting up on the side of the bed appears mildly ill in NAD A+O x3 Eyes: No Scleral Icterus, PERRLA Ears/Nose/Mouth/Throat: NL Teeth, Lips, Gums, Mucous Membranes Moist Neck: NL Appearance and Movements; NL JVP, Trachea Midline Respiratory: Symmetrical Chest Expansion and Respiratory Effort, - - diminished bilaterally Cardiovascular: NL Sounds; No Murmurs; No JVD, RRR, No Edema Abdominal: NL Sounds; No Tenderness; No Distention Lymphatic: No Cervical Adenopathy Extremities: No Edema, No Clubbing, Cyanosis Skin: No Rash or Ulcers, No Nodules or Sclerosis Neurological: Alert and Oriented x 3, NL Sensation, NL Gait, NL Muscle Strength and Tone Lines/Tubes/Other Access: Clean, Dry and Intact Peripheral IV Nutrition: Taking PO's Result Diagrams: 04/06/16 06:07 04/06/16 06:07 Additional Lab and Data: Lab Results 04/05/16 04/05/16 04/05/16 Range/Units 05:30 05:30 05:30 WBC 14.1 H (3.5-10.8) 10^3/ul RBC 4.94 (4.0-5.4) 10^6/ul Hgb 14.7 (12.0-16.0) g/dl Hct 45 (35-47) % MCV 90 (80-97) fL MCH 30 (27-31) pg MCHC 33 (31-36) g/dl RDW 14 (10.5-15) % Plt Count 293 (150-450) 10^3/ul MPV 9 (7.4-10.4) um3 Neut % (Auto) 81.8 (38-83) % Lymph % (Auto) 11.4 L (25-47) % [place] % (Auto) 6.1 (1-9) % Eos % (Auto) 0.3 (0-6) % Baso % (Auto) 0.4 (0-2) % Absolute Neuts (auto) 11.5 H (1.5-7.7) 10^3/ul Absolute Lymphs (auto) 1.6 (1.0-4.8) 10^3/ul Absolute Monos (auto) 0.9 H (0-0.8) 10^3/ul Absolute Eos (auto) 0 (0-0.6) 10^3/ul Absolute Basos (auto) 0.1 (0-0.2) 10^3/ul Absolute Nucleated RBC 0.01 10^3/ul Nucleated RBC % 0 D-Dimer, Quantitative (Less Than 230) ng/mL Sodium 137 (133-145) mmol/L Potassium 3.4 L (3.5-5.0) mmol/L Chloride 103 (101-111) mmol/L Carbon Dioxide 24 (22-32) mmol/L Anion Gap 10 (2-11) mmol/L BUN 14 (6-24) mg/dL Creatinine 1.13 H (0.51-0.95) mg/dL Est GFR ( Amer) 62.1 (>60) Est GFR (Non-Af Amer) 48.3 (>60) BUN/Creatinine Ratio 12.4 (8-20) Glucose 87 (70-100) mg/dL Lactic Acid 1.1 (0.5-2.0) mmol/L Calcium 9.6 (8.6-10.3) mg/dL Total Bilirubin 0.40 (0.2-1.0) mg/dL AST 18 (13-39) U/L ALT 15 (7-52) U/L Alkaline Phosphatase 64 (34-104) U/L Troponin I 0.04 H* (<0.04) ng/mL B-Natriuretic Peptide ( - 100) pg/mL Total Protein 7.8 (6.4-8.9) g/dL Albumin 4.1 (3.2-5.2) g/dL Globulin 3.7 (2-4) g/dL Albumin/Globulin Ratio 1.1 (1-3) Lipase 19 (11.0-82.0) U/L 04/05/16 04/05/16 Range/Units 05:30 05:30 WBC (3.5-10.8) 10^3/ul RBC (4.0-5.4) 10^6/ul Hgb (12.0-16.0) g/dl Hct (35-47) % MCV (80-97) fL MCH (27-31) pg MCHC (31-36) g/dl RDW (10.5-15) % Plt Count (150-450) 10^3/ul MPV (7.4-10.4) um3 Neut % (Auto) (38-83) % Lymph % (Auto) (25-47) % [place] % (Auto) (1-9) % Eos % (Auto) (0-6) % Baso % (Auto) (0-2) % Absolute Neuts (auto) (1.5-7.7) 10^3/ul Absolute Lymphs (auto) (1.0-4.8) 10^3/ul Absolute Monos (auto) (0-0.8) 10^3/ul Absolute Eos (auto) (0-0.6) 10^3/ul Absolute Basos (auto) (0-0.2) 10^3/ul Absolute Nucleated RBC 10^3/ul Nucleated RBC % D-Dimer, Quantitative 261 H (Less Than 230) ng/mL Sodium (133-145) mmol/L Potassium (3.5-5.0) mmol/L Chloride (101-111) mmol/L Carbon Dioxide (22-32) mmol/L Anion Gap (2-11) mmol/L BUN (6-24) mg/dL Creatinine (0.51-0.95) mg/dL Est GFR ( Amer) (>60) Est GFR (Non-Af Amer) (>60) BUN/Creatinine Ratio (8-20) Glucose (70-100) mg/dL Lactic Acid (0.5-2.0) mmol/L Calcium (8.6-10.3) mg/dL Total Bilirubin (0.2-1.0) mg/dL AST (13-39) U/L ALT (7-52) U/L Alkaline Phosphatase (34-104) U/L Troponin I (<0.04) ng/mL B-Natriuretic Peptide 51 ( - 100) pg/mL Total Protein (6.4-8.9) g/dL Albumin (3.2-5.2) g/dL Globulin (2-4) g/dL Albumin/Globulin Ratio (1-3) Lipase (11.0-82.0) U/L Microbiology and Other Data: Microbiology 04/05/16 09:30 Influenza Types A,B Antigen (BRENDEN) - Final Nasal Specimen received for Influenza A/B Molecular testing Assess/Plan/Problems-Billing Assessment: Mrs. Patten is a 65 yo female with a PMH of GERD who presented 04/05 with c/o of worsening upper respiratory symptoms, abdominal pain and dysuria found to have an indeterminate troponin and DAVID. - Patient Problems (1) Acute bronchitis Comment: - continue robutussin DM - continue nebs - continue Levaquin, prednisone - check for pertussis (2) Sinusitis Comment: - continue levaquin (3) DAVID (acute kidney injury) Comment: - improving with IVFs. - recheck in am (4) prophylactic treatment influenza Comment: - continue Tamiflu 75 mg daily for 10 days. Day 04/20 (5) Abdominal pain Comment: - per pt pain pretty much resolved, occassional tenderness with coughing. suspect secondary to musculoskeletal pain from coughing but there is a hernia noted on CT around the area she was having pain. curb-sided surgery Dr. Beth who says she can f/u up in office. If she develops pain then there would be concern for strangulated hernia and it would be a surgical emergency. - dysuria resolved. Urine cx negative - continue to monitor. (6) GERD (gastroesophageal reflux disease) Comment: - continue PPI (7) indeterminate troponin Comment: - resolved. No CP. No EKG changes. - D/C tele (8) DVT prophylaxis Comment: HSQ Status and Disposition: inpatient with acute bronchitis, sinusitis, DAVID and possible influenza. Possible DC to home tomorrow.
[2016-04-06] MEDS: NS 0.9% 1000 ML* 1,000 ML IV SCH ×3 (07:58→20:07)
[2016-04-06] MEDS: Lactobacillus Acidophilu (GG)* 1 CAP CAP PO SCH (09:47)
[2016-04-06] MEDS: predniSONE TAB* 20 MG PO SCH (09:47)
[2016-04-06] MEDS: Oseltamivir CAP* 75 MG PO SCH (09:47)
[2016-04-06] MEDS: Aspirin EC Low Dose* 81 MG TAB.EC PO SCH (09:48)
[2016-04-06] MEDS: Fluticasone NASAL SPRAY 50MCG* 16 gm SPRAY BTL BOTH NARES SCH (09:48)
[2016-04-06] MEDS: Levofloxacin 500 MG IVPREMIX(* 500 MG/100 ML BAG IVPB SCH (09:49)
[2016-04-06] MEDS: GuaiFENesin DM* 5 ML UDC PO PRN ×2 (09:49→21:48)
[2016-04-07] MEDS: Omeprazole CAP* 20 MG PO SCH (04:45)
[2016-04-07] MEDS: Heparin VIAL(*) 5000 UNITS/ML VIAL (FIVE THOUSAND) SUBCUT SCH (04:45)
[2016-04-07] MEDS: GuaiFENesin DM* 5 ML UDC PO PRN (04:46)
[2016-04-07] MEDS: NS 0.9% 1000 ML* 1,000 ML IV SCH (06:10)
[2016-04-07 07:04] LABS: Hematocrit 41 % (35-47); Hemoglobin 13.3 g/dl (12.0-16.0); Mean Corpuscular HGB Conc 33 g/dl (31-36); Mean Corpuscular Hemoglobin 30 pg (27-31); Mean Corpuscular Volume 91 fL (80-97); Mean Platelet Volume 9 um3 (7.4-10.4); Red Blood Count 4.45 10^6/ul (4.0-5.4); Red Cell Distribution Width 14 % (10.5-15); White Blood Count 13.2 10^3/ul (3.5-10.8)
[2016-04-07 07:14] LABS: BUN/Creatinine Ratio 12.3 (8-20); EGFR African American 66.9 (>60); Potassium 3.5 mmol/L (3.5-5.0)
[2016-04-07 07:37] VITALS: BP 142/90
[2016-04-07] MEDS: Aspirin EC Low Dose* 81 MG TAB.EC PO SCH (09:24)
[2016-04-07] MEDS: Lactobacillus Acidophilu (GG)* 1 CAP CAP PO SCH (09:24)
[2016-04-07] MEDS: predniSONE TAB* 20 MG PO SCH (09:25)
[2016-04-07] MEDS: Oseltamivir CAP* 75 MG PO SCH (09:25)
[2016-04-07] MEDS: Fluticasone NASAL SPRAY 50MCG* 16 gm SPRAY BTL BOTH NARES SCH (09:28)
--- NOTE | 2016-04-07 09:33 | DCNOTE ---
Subjective Date of Service: 04/07/16 Interval History: patient reports she feels much much better today, continues to have a productive cough and mild nasal congestion. No fevers or chills. reports okay appetite. increased energy. no body aches. denies BISHOP, sore throat. No abdominal pain, N/V/D. Feels ready to go home Objective Active Medications: Albuterol/Ipratropium (Duoneb Neb.Flaquita*) 1 neb INH Q4H PRN PRN Reason: SOB/WHEEZING Aspirin (Aspirin Ec Low Dose*) 81 mg PO DAILY [facility] Last Admin: 04/06/16 09:48 Dose: 81 mg Benzonatate (Tessalon Cap*) 100 mg PO BID PRN PRN Reason: COUGH Last Admin: 04/06/16 02:51 Dose: 100 mg Fluticasone Propionate (Flonase Nasal [place] 50mcg*) 2 spray BOTH NARES DAILY [facility] Last Admin: 04/06/16 09:48 Dose: 2 spray Guaifenesin/Dextromethorphan (Robitussin Dm*) 10 ml PO Q6H PRN PRN Reason: COUGH Last Admin: 04/07/16 04:46 Dose: 10 ml Heparin Sodium (Porcine) (Heparin Vial(*)) 5,000 units SUBCUT Q8HR [facility] Last Admin: 04/07/16 04:45 Dose: 5,000 units Lactobacillus Rhamnosus (Culturelle*) 1 cap PO DAILY [facility] Last Admin: 04/06/16 09:47 Dose: 1 cap Levofloxacin (Levaquin Tab*) 500 mg PO Q24H [facility] Omeprazole (Prilosec Cap*) 20 mg PO 0600 [facility] Last Admin: 04/07/16 04:45 Dose: 20 mg Oseltamivir Phosphate (Tamiflu Cap*) 75 mg PO DAILY [facility] Stop: 04/14/16 09:01 Last Admin: 04/06/16 09:47 Dose: 75 mg Prednisone (Deltasone Tab*) 40 mg PO DAILY [facility] Last Admin: 04/06/16 09:47 Dose: 40 mg Vital Signs 04/06/16 04/06/16 04/06/16 11:10 15:21 17:03 Temperature 98.2 F 98.3 F Pulse Rate 89 86 82 Respiratory 20 16 18 Rate Blood Pressure 117/73 129/70 (mmHg) O2 Sat by Pulse 95 92 96 Oximetry 04/06/16 04/06/16 04/06/16 19:49 20:00 23:12 Temperature 97.9 F 98.5 F Pulse Rate 84 92 83 Respiratory 17 18 16 Rate Blood Pressure 128/83 151/85 (mmHg) O2 Sat by Pulse 94 96 99 Oximetry 04/07/16 04/07/16 07:12 08:56 Temperature 97.8 F Pulse Rate 80 81 Respiratory 16 20 Rate Blood Pressure 142/90 (mmHg) O2 Sat by Pulse 100 95 Oximetry Oxygen Devices in Use Now: None Appearance: 65 yo female sitting up on the side of her bed in NAD. A+O x3 Eyes: No Scleral Icterus, PERRLA Ears/Nose/Mouth/Throat: NL Teeth, Lips, Gums, Mucous Membranes Moist Neck: NL Appearance and Movements; NL JVP Respiratory: Symmetrical Chest Expansion and Respiratory Effort, Clear to Auscultation Cardiovascular: NL Sounds; No Murmurs; No JVD, RRR, No Edema Abdominal: NL Sounds; No Tenderness; No Distention Lymphatic: No Cervical Adenopathy Extremities: No Edema, No Clubbing, Cyanosis Skin: No Rash or Ulcers, No Nodules or Sclerosis Neurological: Alert and Oriented x 3, NL Muscle Strength and Tone Lines/Tubes/Other Access: Clean, Dry and Intact Peripheral IV Nutrition: Taking PO's Result Diagrams: 04/07/16 06:37 04/07/16 06:37 Additional Lab and Data: Lab Results 04/05/16 04/05/16 04/05/16 Range/Units 05:30 05:30 05:30 WBC 14.1 H (3.5-10.8) 10^3/ul RBC 4.94 (4.0-5.4) 10^6/ul Hgb 14.7 (12.0-16.0) g/dl Hct 45 (35-47) % MCV 90 (80-97) fL MCH 30 (27-31) pg MCHC 33 (31-36) g/dl RDW 14 (10.5-15) % Plt Count 293 (150-450) 10^3/ul MPV 9 (7.4-10.4) um3 Neut % (Auto) 81.8 (38-83) % Lymph % (Auto) 11.4 L (25-47) % [place] % (Auto) 6.1 (1-9) % Eos % (Auto) 0.3 (0-6) % Baso % (Auto) 0.4 (0-2) % Absolute Neuts (auto) 11.5 H (1.5-7.7) 10^3/ul Absolute Lymphs (auto) 1.6 (1.0-4.8) 10^3/ul Absolute Monos (auto) 0.9 H (0-0.8) 10^3/ul Absolute Eos (auto) 0 (0-0.6) 10^3/ul Absolute Basos (auto) 0.1 (0-0.2) 10^3/ul Absolute Nucleated RBC 0.01 10^3/ul Nucleated RBC % 0 D-Dimer, Quantitative (Less Than 230) ng/mL Sodium 137 (133-145) mmol/L Potassium 3.4 L (3.5-5.0) mmol/L Chloride 103 (101-111) mmol/L Carbon Dioxide 24 (22-32) mmol/L Anion Gap 10 (2-11) mmol/L BUN 14 (6-24) mg/dL Creatinine 1.13 H (0.51-0.95) mg/dL Est GFR ( Amer) 62.1 (>60) Est GFR (Non-Af Amer) 48.3 (>60) BUN/Creatinine Ratio 12.4 (8-20) Glucose 87 (70-100) mg/dL Lactic Acid 1.1 (0.5-2.0) mmol/L Calcium 9.6 (8.6-10.3) mg/dL Total Bilirubin 0.40 (0.2-1.0) mg/dL AST 18 (13-39) U/L ALT 15 (7-52) U/L Alkaline Phosphatase 64 (34-104) U/L Troponin I 0.04 H* (<0.04) ng/mL B-Natriuretic Peptide ( - 100) pg/mL Total Protein 7.8 (6.4-8.9) g/dL Albumin 4.1 (3.2-5.2) g/dL Globulin 3.7 (2-4) g/dL Albumin/Globulin Ratio 1.1 (1-3) Lipase 19 (11.0-82.0) U/L 04/05/16 04/05/16 Range/Units 05:30 05:30 WBC (3.5-10.8) 10^3/ul RBC (4.0-5.4) 10^6/ul Hgb (12.0-16.0) g/dl Hct (35-47) % MCV (80-97) fL MCH (27-31) pg MCHC (31-36) g/dl RDW (10.5-15) % Plt Count (150-450) 10^3/ul MPV (7.4-10.4) um3 Neut % (Auto) (38-83) % Lymph % (Auto) (25-47) % [place] % (Auto) (1-9) % Eos % (Auto) (0-6) % Baso % (Auto) (0-2) % Absolute Neuts (auto) (1.5-7.7) 10^3/ul Absolute Lymphs (auto) (1.0-4.8) 10^3/ul Absolute Monos (auto) (0-0.8) 10^3/ul Absolute Eos (auto) (0-0.6) 10^3/ul Absolute Basos (auto) (0-0.2) 10^3/ul Absolute Nucleated RBC 10^3/ul Nucleated RBC % D-Dimer, Quantitative 261 H (Less Than 230) ng/mL Sodium (133-145) mmol/L Potassium (3.5-5.0) mmol/L Chloride (101-111) mmol/L Carbon Dioxide (22-32) mmol/L Anion Gap (2-11) mmol/L BUN (6-24) mg/dL Creatinine (0.51-0.95) mg/dL Est GFR ( Amer) (>60) Est GFR (Non-Af Amer) (>60) BUN/Creatinine Ratio (8-20) Glucose (70-100) mg/dL Lactic Acid (0.5-2.0) mmol/L Calcium (8.6-10.3) mg/dL Total Bilirubin (0.2-1.0) mg/dL AST (13-39) U/L ALT (7-52) U/L Alkaline Phosphatase (34-104) U/L Troponin I (<0.04) ng/mL B-Natriuretic Peptide 51 ( - 100) pg/mL Total Protein (6.4-8.9) g/dL Albumin (3.2-5.2) g/dL Globulin (2-4) g/dL Albumin/Globulin Ratio (1-3) Lipase (11.0-82.0) U/L Microbiology and Other Data: Microbiology 04/05/16 09:30 Influenza Types A,B Antigen (BRENDEN) - Final Nasal Specimen received for Influenza A/B Molecular testing Assess/Plan/Problems-Billing Assessment: Mrs. Patten is a 65 yo female with a PMH of GERD who presented 04/05 with c/o of worsening upper respiratory symptoms, abdominal pain and dysuria found to have an indeterminate troponin and DAVID. - Patient Problems (1) Acute bronchitis Comment: - continue robutussin DM - continue dulera and albuterol - continue Levaquin, prednisone - pertussis pending (2) Sinusitis Comment: - continue levaquin (3) DAVID (acute kidney injury) Comment: - improved with IVFs. (4) prophylactic treatment influenza Comment: - continue Tamiflu 75 mg daily for 10 days. Day 05/18 (5) Abdominal pain Comment: - per pt pain pretty much resolved, occassional tenderness with coughing. suspect secondary to musculoskeletal pain from coughing but there is a hernia noted on CT around the area she was having pain. curb-sided surgery Dr. Beth who says she can f/u up in office. If she develops pain then there would be concern for strangulated hernia and it would be a surgical emergency. - dysuria resolved. Urine cx negative (6) GERD (gastroesophageal reflux disease) Comment: - continue PPI (7) indeterminate troponin Comment: - resolved. No CP. No EKG changes. - D/C tele (8) DVT prophylaxis Comment: HSQ Status and Disposition: inpatient with acute bronchitis, sinusitis, DAVID and possible influenza. Possible DC to home today.
[2016-04-07] MEDS ORDERED: Levofloxacin TAB* 500 MG PO SCH (10:00)
--- NOTE | 2016-04-07 21:19 | DS ---
DISCHARGE SUMMARY: DATE OF ADMISSION: 04/05/16 DATE OF DISCHARGE: 04/07/16 PROVIDER: Malcom Cruz NP ATTENDING PHYSICIAN: Cherry Issa MD *(report dictated by Malcom Cruz NP) PRIMARY CARE PROVIDER: Abdelrahman Ponce MD REFERRING TO GENERAL SURGEON: Ignacio Beth MD PRIMARY DIAGNOSES: 1. Acute bronchitis. 2. Sinusitis. 3. Acute kidney injury. 4. Hernia. 5. Being treated for prophylaxis of influenza due to exposure. SECONDARY DIAGNOSES: 1. Gastroesophageal reflux disease. 2. Cataracts. DISCHARGE MEDICATIONS: 1. Aspirin 81 mg p.o. daily. 2. Nexium 42.3 mg p.o. q.a.m. 3. Albuterol HFA inhaler 1 to 2 puffs INH q.6 hours p.r.n. New medications: 1. Prednisone 40 mg p.o. daily x1 day. 2. Tamiflu 75 mg p.o. daily x8 days for a total of 10-day treatment for prophylaxis of influenza. 3. Dulera 100/5 mcg 2 puffs INH b.i.d. 4. Levaquin 500 mg p.o. daily x1 dose for a total of 7-day course. 5. Culturelle probiotic 1 cap p.o. daily for 60 days. 6. Robitussin DM 10 mL p.o. q.6 hours p.r.n. cough. 7. Flonase 2 sprays to nares daily p.r.n. 8. Tessalon cap 100 mg p.o. b.i.d. p.r.n. cough. HISTORY OF PRESENT ILLNESS AND HOSPITAL COURSE: Please see history and physical by this author for full admission details but in summary, this is a 65- year-old female with the past medical history of GERD and cataracts who presented to the emergency department on 04/05/16 with complaints of worsening upper respiratory illness symptoms, abdominal pain, and dysuria. Ms. Patten reports she first felt a cold beginning of March and had rhinorrhea and nasal congestion for several weeks. On March 27, she was diagnosed with sinus infection, put on either "azithromycin or erythromycin" and initially felt better. Then on March 30, she had palpitations, went to the emergency department where it was thought she was having reaction to the antibiotics and switched to cefpodoxime. She then returned to the emergency department on April 02 with worsening upper respiratory illness symptoms such has cough, shortness of breath, wheezing, and so she was put on a course of prednisone. The patient then returned to the emergency department 2 days later on 04/05/16 with worsening upper respiratory symptoms including severe nasal congestion, cough with sputum production, generalized body aches, malaise, decreased appetite, dysuria, and reports unable to sleep since starting the prednisone. The patient was admitted to the hospitalist service with diagnoses of acute bronchitis, sinusitis, possible influenza as well as she was noted to have acute kidney injury secondary to dehydration. On admission, the patient had a leukocytosis of 14,000 and she was admitted initially to the telemetry unit for a troponin of 0.04 and had her troponins trended, which her troponin I and II were both 0.00. She had complaints of no chest pain and no EKG changes noted. It was thought to be secondary to demand ischemia. The patient was prophylactically started on Tamiflu and a day and a half prior, the patient's granddaughter was diagnosed with influenza through Urgent Care and the patient has been taking care of her. The patient has done well throughout her hospitalization. She has some noted low- grade fevers, but otherwise has been afebrile. Her body aches have resolved as well as her nasal congestion and cough has greatly improved. In regards to the patient's abdominal pain, I think it is a combination between coughing, having musculoskeletal tenderness as well as she did undergo an abdominal and pelvis CT, which showed an anterior abdominal wall hernia containing omentum and epigastric area in which it appears to be the area of her complaint of the abdominal pain. I spoke with general surgeon, Dr. Beth, who will follow up with the patient as an outpatient. After the day of admission, the patient's abdominal pain has resolved and has not been an issue. The patient was educated that if she were to have pain, she should come back to the emergency department as there could be concern for strangulation. Today , the patient denies any abdominal pain and her abdominal exam is benign. In regards to the patient's acute kidney injury, she presented with a creatinine of 1.13, improved with hydration, now down to 1.06. The patient was also instructed to hold ibuprofen use. Please note the patient did test negative for influenza A and B. Blood cultures day 2 have no growth. Urine culture, no growth. I have sent Bordetella pertussis IgG; however, the results are still pending at the time of this dictation. This will need to be followed up as an outpatient. On admission, the patient was noted to have a D-dimer of 261. She underwent a chest thorax CTA, which showed "no pulmonary artery filling defect to suggest pulmonary embolism. Mild bibasilar bronchiectasis with peribronchial thickening and minimal mucus plugging." Please note, the patient has not required any oxygen supplementation throughout the hospitalization and she has remained hemodynamically stable. The patient is stable for discharge to home. DISCHARGE PLAN: Discharged to home. Followup with Dr. Ponce on 04/09/16 at 3:50 p.m. The patient was instructed to make an appointment with general surgeon, Dr. Beth, for evaluation of her hernia, which is noted on this hospitalization and again, the patient was instructed if she has any abdominal pain, she should return to the emergency department for further evaluation. TIME SPENT: Approximately 60 minutes was spent in this discharge. MALCOM CRUZ NP CC: Dr. Ponce* [id number]/[facility] #: [id number] AMY
== END 2016-04-07 10:37 | disposition home or self-care (01) | DRG 683 ==
LOC: ED 04:55 → MEDTELE 06:51
PROVIDERS: ADMIT Hospitalist; ATTEND Internal Medicine
DX: N17.9 Acute kidney failure, unspecified (principal); I24.8 Other forms of acute ischemic heart disease; J20.9 Acute bronchitis, unspecified; J32.9 Chronic sinusitis, unspecified; E86.0 Dehydration; K21.9 Gastro-esophageal reflux disease without esophagitis; M19.90 Unspecified osteoarthritis, unspecified site; G43.909 Migraine, unspecified, not intractable, without status migrainosus; E87.6 Hypokalemia; R30.0 Dysuria; Z20.828 Contact with and (suspected) exposure to other viral communicable diseases; K43.9 Ventral hernia without obstruction or gangrene; J47.9 Bronchiectasis, uncomplicated; Z88.1 Allergy status to other antibiotic agents; Z88.6 Allergy status to analgesic agent; Z98.42 Cataract extraction status, left eye; Z82.49 Family history of ischemic heart disease and other diseases of the circulatory system; Z83.3 Family history of diabetes mellitus; Z80.3 Family history of malignant neoplasm of breast; Z79.82 Long term (current) use of aspirin
CPT/HCPCS: 36415; 71010; 71275; 74177; 80048; 80053; 81003; 81015; 83605; 83690; 83735; 83880; 84484; 85025; 85379; 85610; 85730; 86615; 87040; 87086; 87502; 93005; 94640; 94760; 96374; 99282; 99283; A9270-GY; J1644; J1885; J1956; J2405; J7512; J7644; Q9967

== ENCOUNTER 2016-07-26 08:29 | Day surgery (SDC) | payer MEDICARE ==
--- NOTE | 2016-07-10 17:47 | HP ---
PREOPERATIVE HISTORY AND PHYSICAL: DATE OF ADMISSION/SURGERY: 07/26/16 This patient is scheduled for same day surgery admission by Dr. Beth on , 07/26/16. DATE OF PREOPERATIVE HISTORY AND PHYSICAL EXAMINATION: 07/10/16 ATTENDING PROVIDER: Dr. Beth (DICTATED BY KEON PAT NP) CHIEF COMPLAINT: Ventral hernia. HISTORY OF PRESENT ILLNESS: The patient is a 66-year-old female referred to Dr. Beth from Dr. Ponce for evaluation of A ventral hernia. The patient was first seen in our office on April 18, 2016. Prior to that, she was in the [facility] Emergency Room with exacerbation of pulmonary symptoms and was diagnosed with bronchitis. She was doing a lot of coughing and experienced abdominal pain and underwent a CAT scan of the abdomen, which revealed a ventral hernia. In the emergency room, her labs reflected renal insufficiency and she was therefore referred to Dr. Hendricks and he diagnosed her with chronic kidney disease stage 2, but stated that her lab values and creatinine clearance were essentially normal for her age. She was cleared by Dr. Hendricks to proceed with the recommended open ventral hernia repair with mesh by Dr. Beth. She is no longer having any abdominal pain and she denies any signs or symptoms to suggest incarceration or strangulation. Dr. Beth described the nature of the surgical procedure, the rationale for the procedure , the relevant risks and benefits, and today I described the typical postoperative care and recovery. The patient has had a chance to ask questions and stated that she understands the information and is satisfied with the answers given to her questions. She will sign surgical consent on the day of surgery. PAST MEDICAL HISTORY: Significant for chronic kidney disease stage 2, bronchitis, and fungal infections in skin folds. PAST SURGICAL HISTORY: Open cholecystectomy in 1989; back surgery 1995; knee surgery 2009; and cataract extraction 2010. MEDICATIONS: 1. Aspirin 81 mg p.o. daily and she will hold that for 1 week preoperatively. 2. Nexium 40 mg p.o. daily. 3. Culturelle one tablet p.o. daily. 4. Albuterol inhaler 1-2 puffs every 6 hours p.r.n. 5. Flonase one spray in each nostril b.i.d. ALLERGIES: AMOXICILLIN caused rash, ERYTHROMYCIN caused palpitations, and CODEINE caused hyperactivity. FAMILY HISTORY: No known anesthesia complications, bleeding tendencies or clotting disorders. 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 REVIEW OF SYSTEMS: She denies any chest pain, pressure, or palpitations or any history of myocardial infarction or hypertension; she denies any history of deep vein thrombosis or pulmonary embolism. She was diagnosed with bronchitis in April 2016. She denies any history of pneumonia; her chest x-ray done on preadmission testing today was normal and she no longer has a cough. She denies any previous anesthesia complications; she denies any current gastrointestinal complaints. She denies any signs or symptoms to suggest incarceration or strangulation of the ventral hernia; she saw Dr. Hendricks in April and May 2016 for evaluation of renal insufficiency and was diagnosed with chronic kidney disease stage 2 and was told that her lab values are essentially normal for her age and she could proceed with the recommended ventral hernia repair; she denies any dysuria; she denies any bleeding tendencies and has never received a blood transfusion; she has osteoarthritis in some joints but denies any pain. She denies any neurologic complaints. She does have a history of fungal infections in skin folds and currently is being treated through her primary care provider for a fungal infection in the left groin region; Dr. Beth did examine the patient with me today and is aware of the fungal infection and stated that it was far enough away from the surgical site and it would not necessitate postponing surgery; the patient will have a preop visit with her primary care provider and update me with any change in the plan. PHYSICAL EXAMINATION GENERAL SURVEY: The patient is a 66-year-old overweight female, well-developed , in no acute distress. VITAL SIGNS: Height 66 inches, weight 221 pounds, body mass index 35.7, blood pressure 118/80, pulse 78 and regular, respiratory rate 16, temperature 97.6 tympanic. HEENT: Benign. NECK: Supple. No cervical lymphadenopathy. LUNGS: Breath sounds bilaterally, clear and equal. HEART: Regular rate and rhythm. No murmurs or rubs appreciated. ABDOMEN: Active bowel sounds, obese, soft; there is a palpable mass midway between the umbilicus and the xiphoid consistent with ventral hernia on the left side of the abdomen. The lower abdomen has a large pannus and no inguinal hernias are appreciated; however, the exam is limited by the body habitus. EXTREMITIES: Warm without edema or skin ulceration. PELVIC AND RECTAL: Deferred. NEUROLOGIC: Alert and oriented x3. Steady gait. BACK: No CVA tenderness. SKIN: Fungal rash, left groin, extending to the inner aspect of the left thigh which is fiery red and there are areas of crusting but no blisters. No other skin changes. IMPRESSION: Ventral hernia. PLAN: Same-day surgery admission to Dr. Beth's service on , 07/26/16 , for open repair of ventral hernia with mesh. KEON PAT NP CC: Dr. Beth; Dr. Abdelrahman Ponce * [id number]/[facility] #: [id number] MTDD
[~2016-07-26 08:29] MED LIST: Buffered Lidocaine 1% SYR 3ML* 3 ML/SYR SYRINGE INTRADERM ONE; Dexamethasone IV* 4 MG/ML 1 ML (4 MG) IV SLOW PU ONE; Famotidine IV* 10 MG/ML 2 ML (20 mg) IV ONE
[2016-07-26] MEDS ORDERED: Heparin VIAL(*) 5000 UNITS/ML VIAL (FIVE THOUSAND) ONE (08:33)
[2016-07-26] MEDS ORDERED: Famotidine IV* 10 MG/ML 2 ML (20 mg) ONE (08:33)
[2016-07-26] MEDS ORDERED: Clindamycin 900 MG IVPREMIX(* 900 MG/50 ML SDV IV ONE (08:34)
[2016-07-26] MEDS ORDERED: Dexamethasone IV* 4 MG/ML 1 ML (4 MG) ONE (08:34)
[2016-07-26] MEDS ORDERED: fentaNYL* 50 MCG/ML 2 ML VIAL (100 MCG VIAL) ONE ×2 (08:44→11:48)
[2016-07-26] MEDS ORDERED: Midazolam* 1 MG/ML 2 ML VIAL (2 MG) ONE (08:44)
[2016-07-26] MEDS ORDERED: Buffered Lidocaine 1% SYRIN* 5 ML/SYR SYRINGE ONE (08:48)
[2016-07-26] MEDS ORDERED: Bupivacaine 0.5% W/EPI SDV* 30 ML VIAL ONE (10:02)
[2016-07-26] MEDS ORDERED: Bupivacaine 0.25% SDV* 30 ML ONE (10:22)
[2016-07-26] MEDS ORDERED: Bupivacaine 0.25% EPI 200,000* 30 ML SDV ONE (10:22)
[2016-07-26] MEDS ORDERED: Propofol* 10 MG/ML 20 ML BTL IV PUSH ONE (10:29)
[2016-07-26] MEDS ORDERED: DiMENhydriNATE IV* 50 MG/ML VIAL IV PUSH PRN (10:39)
[2016-07-26] MEDS ORDERED: Ondansetron INJ* 2 MG/ML VIAL ONE (10:57)
[2016-07-26] MEDS ORDERED: Ketorolac INJ* 30 MG/ML 1 ML VIAL ONE (10:57)
--- NOTE | 2016-07-26 11:35 | PN ---
Progress Note - Progress Note Note: Brief Operative Note: Preop and Postop Dx: Ventral Hernia Procedure: open repair ventral hernia w/ mesh Anesthesia: GET Surgeon: Ignacia Asst: ANALI Duron EBL: <100 ml Fluids: 500 ml RL Drains: none Findings: dictated
[2016-07-26] MEDS ORDERED: HYDROcodone/ACETAMIN 5-325 MG* 1 TAB PO PRN (11:36)
[2016-07-26] MEDS: fentaNYL* 50 MCG/ML 2 ML VIAL (100 MCG VIAL) IV PRN ×2 (11:48→12:27)
[2016-07-26] MEDS ORDERED: DiMENhydriNATE IV* 50 MG/ML VIAL ONE (12:05)
[2016-07-26] MEDS ORDERED: HYDROcodone/ACETAMIN 5-325 MG* 1 TAB ONE (12:26)
[2016-07-26 13:36] VITALS: BP 126/69
--- NOTE | 2016-07-27 02:43 | OP ---
DATE OF OPERATION: 07/26/16 - [facility] DATE OF : 50 SURGEON: Ignacio Beth MD WATCH MECHANIC: ANALI Shah ANESTHESIOLOGIST: Dr. Rodriges. ANESTHESIA: General anesthetic, local infiltration. PRE-OP DIAGNOSIS: Ventral hernia. POST-OP DIAGNOSIS: Ventral hernia. OPERATIVE PROCEDURE: Open repair of ventral hernia with mesh. DESCRIPTION OF PROCEDURE: The patient was supine on the operative table. After adequate general anesthetic, compression stockings, Jae Hugger Warmer and intravenous antibiotics, the abdomen was prepped with antiseptic and draped in a sterile fashion. Local infiltrative anesthesia was administered. Approximately 8 cm incision was created in the upper abdomen. Dissection was carried down to her hernia, which was approximately 8 x 5 cm although this was coming from a neck of about 3 cm. This was dissected free and reduced and it was found to be secondary defect medial to the right of this present defect, which was just a little to the left of the midline. The second defect was by a 1 cm bridge and the defect itself was about 1.5 to 2 cm. These were connected to create approximately 5 to 7 cm defect and the preperitoneal plane was developed and an 8 x 12 cm oval underlay patch was utilized. This was parachuted up underneath with 4 sutures of 0 Polysorb followed by the SecureStrap tacker to secure it up underneath. The fascia was then closed over top with 0 Polysorb. Local anesthetic was administered. The adipose was closed with 4-0 Polysorb followed by sterile dressing. She tolerated the procedure well, was brought to the recovery room in good condition. No complications. No drains. No pathologic specimens. Sponge, instruments counts correct. Estimated blood loss less than 20 mL. CC: Abdelrahman Ponce MD * [id number]/[facility] #: [id number] MTDD
== END 2016-07-26 13:57 | disposition home or self-care (01) ==
LOC: OR 08:29
PROVIDERS: ATTEND Surgery
DX: K43.9 Ventral hernia without obstruction or gangrene (principal); N18.2 Chronic kidney disease, stage 2 (mild); Z79.82 Long term (current) use of aspirin; Z88.1 Allergy status to other antibiotic agents
CPT/HCPCS: C1776; C1781; J1100; J1240; J1644; J1885; J2250; J2405; J2704; J3010

== ENCOUNTER 2016-10-11 14:17 | Emergency (ER) | payer MEDICARE ==
[2016-10-11 14:30] VITALS: BP 148/74
--- NOTE | 2016-10-11 14:59 | UC ---
Knee Pain HPI - HPI Summary HPI Summary: Last night was turning body and felt L knee twist and give out (did not fall to the ground). Since then feels the knee give out when she steps wrong. No hx of surgery or injury in L knee, had R knee arthroscopic surgery years ago. No fever or swelling. - History of Current Complaint Hx Obtained From: Patient ?: No Onset/Duration: Sudden Onset Severity Initially: Moderate Severity Currently: Mild Character: Dull, Aching, Stiffness Aggravating Factor(s): Movement - with turning, Weight Bearing Alleviating Factor(s): Rest Associated Signs And Symptoms: Positive: Negative Able to Bear Weight: Yes <Melinda Pavon - Last Filed: 10/11/16 14:54> <Ericka Soto - Last Filed: 10/11/16 16:27> - History of Current Complaint Chief Complaint: UCLowerExtremity Stated Complaint: KNEE INJURY Time Seen by Provider: 10/11/16 14:39 - Allergies/Home Medications Allergies/Adverse Reactions: Allergies Allergy/AdvReac Type Severity Reaction Status Date / Time Amoxicillin Allergy Mild Rash Verified 10/11/16 14:30 Codeine AdvReac Severe made her Verified 10/11/16 14:30 hyper Erythromycin AdvReac Severe Palpitation Verified 10/11/16 14:30 s Home Medications: Home Medications Ibuprofen [Ibuprofen 200 MG] 400 mg PO PRN 10/11/16 [History] PMH/Surg Hx/FS Hx/Imm Hx Cardiovascular History: Hypertension GI/ History: Gastroesophageal Reflux - Surgical History Surgical History: Yes Surgery Procedure, Year, and Place: Cholecystectomy (open), 1989, [facility] [place]. L5 discectomy, 1994, [facility]. Right knee arthroscopic surgery, 2009, [facility] [place]. Left eye cataract removal, 2010, [facility] [place]. Right eye cataract removal, 2015, [facility] [place]. hernia - Family History Known Family History: Positive: Hypertension, Diabetes, Other - Breast CA - Social History Occupation: Retired Lives: With Family Alcohol Use: Occasionally Substance Use Type: None Substance Use Comment - Amount & Last Used: oxycodone Smoking Status (MU): Never Smoked Tobacco - Immunization History Most Recent Influenza Vaccination: 12/2015 Most Recent Tetanus Shot: unknown Most Recent Pneumonia Vaccination: 2004 <Melinda Pavon - Last Filed: 10/11/16 14:54> Review of Systems Constitutional: Negative Skin: Negative Eyes: Negative ENT: Negative Respiratory: Negative Cardiovascular: Negative Gastrointestinal: Negative Genitourinary: Negative Motor: Negative Neurovascular: Negative Musculoskeletal: Arthralgia - L knee Neurological: Negative Psychological: Negative All Other Systems Reviewed And Are Negative: Yes <Melinda Pavon - Last Filed: 10/11/16 14:54> Physical Exam Triage Information Reviewed: Yes Appearance: Well-Appearing, No Pain Distress, Well-Nourished Vital Signs: Initial Vital Signs Temp 97.9 F 10/11/16 14:24 Pulse 77 10/11/16 14:24 Resp 16 10/11/16 14:24 BP 148/74 10/11/16 14:24 Pulse Ox 100 10/11/16 14:24 Vital Signs Reviewed: Yes Eye Exam: Normal, Other - PERRL Eyes: Positive: Conjunctiva Clear ENT Exam: Normal ENT: Positive: Normal ENT inspection, Hearing grossly normal, Pharynx normal, TMs normal Dental Exam: Other - dentures Neck exam: Normal Neck: Positive: Supple, Nontender, No Lymphadenopathy Respiratory Exam: Normal Respiratory: Positive: Chest non-tender, Lungs clear, Normal breath sounds, No respiratory distress, No accessory muscle use Cardiovascular Exam: Normal Cardiovascular: Positive: RRR, No Murmur Musculoskeletal: Positive: ROM Intact Neurological Exam: Normal Neurological: Positive: Alert Psychological Exam: Normal Skin Exam: Normal <Melinda Pavon - Last Filed: 10/11/16 14:54> Vital Signs: Initial Vital Signs Temp 97.9 F 10/11/16 14:24 Pulse 77 10/11/16 14:24 Resp 16 10/11/16 14:24 BP 148/74 10/11/16 14:24 Pulse Ox 100 10/11/16 14:24 <Ericka Soto - Last Filed: 10/11/16 16:27> Knee Pain Course/Dx - Differential Dx/Diagnosis Provider Diagnoses: L knee sprain. L knee instability <Melinda Pavon - Last Filed: 10/11/16 14:54> Discharge <Melinda Pavon - Last Filed: 10/11/16 14:54> <Ericka Soto - Last Filed: 10/11/16 16:27> - Discharge Plan Condition: Stable Disposition: HOME Patient Education Materials: Knee Sprain (ED), Osteoarthritis (ED) Referrals: Jonah Quach MD [Medical Doctor] - Additional Instructions: Please see the orthopedics office within a week. Use your knee splint for all walking in the mean time to prevent further injury. Attestation Statement User Type: Provider - I was available for consult. This patient was seen by the ZENAIDA. The patient was not presented to, seen by, or examined by me. -Lena <Ericka Soto - Last Filed: 10/11/16 16:27>
--- NOTE | 2016-10-11 15:13 | RAD ---
Indication: Left knee pain. 4 views of left knee demonstrates no fracture. Degenerative changes of the patellofemoral joint is noted. Mild joint space narrowing is noted in the medial compartment. No joint effusion is identified. IMPRESSION: MILD JOINT SPACE NARROWING IN THE MEDIAL COMPARTMENT OF THE PATELLOFEMORAL JOINT AND DEGENERATIVE CHANGES OF THE PATELLOFEMORAL JOINT. NO JOINT EFFUSION OR FRACTURE IS NOTED.
== END 2016-10-11 15:47 | disposition home or self-care (01) ==
LOC: UCEAST 14:17
DX: S83.92XA Sprain of unspecified site of left knee, initial encounter (principal); M25.362 Other instability, left knee; X50.1XXA Overexertion from prolonged static or awkward postures, initial encounter; Y92.9 Unspecified place or not applicable; K21.9 Gastro-esophageal reflux disease without esophagitis; I10 Essential (primary) hypertension
CPT/HCPCS: 99213; G0463

== ENCOUNTER 2018-03-27 18:50 | Emergency (ER) | payer MEDICARE ==
--- NOTE | 2018-03-27 21:28 | ED ---
Abdominal Pain/Female - HPI Summary HPI Summary: This patient is a 67 year old F presenting to [facility] accompanied by her with a chief complaint of intermittent LLQ pain since 3 weeks ago. The patient rates the pain 6/10 in severity. Symptoms aggravated by nothing. Symptoms alleviated by nothing. Patient denies nausea, vomiting, diarrhea, or urinary symptoms. Patient notes that her last bowel movement was this morning. Patient has hx of Cholecystectomy and hernia repair. - History of Current Complaint Chief Complaint: EDAbdPain Stated Complaint: ABD PAIN Time Seen by Provider: 03/27/18 21:16 Hx Obtained From: Patient Onset/Duration: Gradual Onset, Lasting Weeks - 3 weeks, Still Present Timing: Intermittent Episode Lasting Severity Initially: Mild Severity Currently: Mild Pain Intensity: 5 Pain Scale Used: 0-10 Numeric Location: Discrete At: LLQ Radiates: No Aggravating Factor(s): Nothing Alleviating Factor(s): Nothing Associated Signs and Symptoms: Negative: Constipation, Urinary Symptoms, Nausea , Vomiting, Diarrhea Allergies/Adverse Reactions: Allergies Allergy/AdvReac Type Severity Reaction Status Date / Time amoxicillin Allergy Mild Rash Verified 03/18/18 10:34 codeine AdvReac Severe made her Verified 03/18/18 10:34 hyper erythromycin base AdvReac Severe Palpitation Verified 03/18/18 10:34 s PMH/Surg Hx/FS Hx/Imm Hx Endocrine/Hematology History: Denies: Hx Diabetes Cardiovascular History: Denies: Hx Hypertension, Hx Pacemaker/ICD Respiratory History: Reports: Hx Pneumonia, Other Respiratory Problems/ Disorders - DX'D W/PNA 04/01/2016Saturday GI History: Reports: Hx Gall Bladder Disease, Hx Gastroesophageal Reflux Disease History: Denies: Hx Dialysis, Hx Renal Disease Musculoskeletal History: Reports: Hx Arthritis, Hx Back Problems, Hx Orthopedic Injury Sensory History: Reports: Hx Cataracts, Hx Contacts or Glasses - glasses for reading Denies: Hx Hearing Aid Opthamlomology History: Reports: Hx Cataracts, Hx Contacts or Glasses - glasses for reading Neurological History: Reports: Other Neuro Impairments/Disorders - PAIN CLINIC PT Denies: Hx Migraine Psychiatric History: Denies: Hx Panic Disorder - Cancer History Hx Chemotherapy: No Hx Radiation Therapy: No - Surgical History Surgery Procedure, Year, and Place: Cholecystectomy (open), 1989, [facility]. L5 discectomy, 1994, [facility]. Right knee arthroscopic surgery, 2010, [facility]. Left eye cataract removal, 2010, [facility]. Right eye cataract removal, 2016, [facility]. hernia repair 07/25 Hx Anesthesia Reactions: No Infectious Disease History: No Infectious Disease History: Denies: Traveled Outside the [place] in Last 30 Days - Family History Known Family History: Positive: Hypertension, Diabetes, Other - Breast CA - Social History Alcohol Use: None Alcohol Amount: 1 drink/week Hx Substance Use: No Substance Use Type: Reports: None Substance Use Comment - Amount & Last Used: oxycodone Hx Tobacco Use: No Smoking Status (MU): Never Smoked Tobacco Review of Systems Negative: Fever Negative: Epistaxis Negative: Chest Pain Negative: Cough Positive: Abdominal Pain - LLQ pain. Negative: Vomiting, Diarrhea, Nausea Negative: dysuria All Other Systems Reviewed And Are Negative: Yes Physical Exam - Summary Physical Exam Summary: VITAL SIGNS: Reviewed. GENERAL: Patient is a well-developed and nourished FEMALE who is lying comfortable in the stretcher. Patient is not in any acute respiratory distress. HEAD AND FACE: No signs of trauma. No ecchymosis, hematomas or skull depressions. No sinus tenderness. EYES: PERRLA, EOMI x 2, No injected conjunctiva, no nystagmus. EARS: Hearing grossly intact. Ear canals and tympanic membranes are within normal limits. MOUTH: Oropharynx within normal limits. NECK: Supple, trachea is midline, no adenopathy, no JVD, no carotid bruit, no c- spine tenderness, neck with full ROM. CHEST: Symmetric, no tenderness at palpation LUNGS: Clear to auscultation bilaterally. No wheezing or crackles. CVS: Regular rate and rhythm, S1 and S2 present, no murmurs or gallops appreciated. ABDOMEN: Soft, non-tender. No signs of distention. No rebound no guarding, and no masses palpated. Bowel sounds are normal. EXTREMITIES: FROM in all major joints, no edema, no cyanosis or clubbing. NEURO: Alert and oriented x 3. No acute neurological deficits. Speech is normal and follows commands. SKIN: Dry and warm Triage Information Reviewed: Yes Vital Signs On Initial Exam: Initial Vitals Temp Pulse Resp BP Pulse Ox 96.6 F 73 18 163/103 97 03/27/18 18:51 03/27/18 18:51 03/27/18 18:51 03/27/18 18:51 03/27/18 18:51 Vital Signs Reviewed: Yes Diagnostics - Vital Signs Vital Signs Temp Pulse Resp BP Pulse Ox 03/27/18 20:54 97.8 F 70 16 134/76 98 03/27/18 18:51 96.6 F 73 18 163/103 97 - Laboratory Result Diagrams: 03/27/18 22:05 03/27/18 22:06 Lab Statement: Any lab studies that have been ordered have been reviewed, and results considered in the medical decision making process. - CT CT Abd/Pelvis CT Interpretation Completed By: Radiologist Summary of CT Findings: no acute CT pathology. Dr. Morales has reviewed this report. Abdominal Pain Fem Course/Dx - Course Course Of Treatment: This patient is a 67 year old F presenting to [facility] accompanied by her with a chief complaint of intermittent LLQ pain since 3 weeks ago. The patient rates the pain 6/10 in severity. Symptoms aggravated by nothing. Symptoms alleviated by nothing. Patient denies nausea, vomiting, diarrhea, or urinary symptoms. Patient notes that her last bowel movement was this morning. Patient has hx of Cholecystectomy and hernia repair. CT Abd/Pelvis reveals, per radiologist, no acute CT pathology. ED physician has reviewed this radiology report. Test results with no significant abnormalities. In the ED course the patient was given Levaquin and contrast. Patient will be discharged home with follow up from PCP. The patient is agreeable with this plan. - Diagnoses Provider Diagnoses: UTI (urinary tract infection) Discharge - Sign-Out/Discharge Documenting (check all that apply): Patient Departure - discharge home - Discharge Plan Condition: Stable Disposition: HOME Prescriptions: Levofloxacin TAB* [Levaquin TAB*] 500 mg PO DAILY #7 tab Patient Education Materials: Urinary Tract Infection in Women (ED) Referrals: Abdelrahman Ponce MD [Primary Care Provider] - Additional Instructions: Follow up with primary care physician in 1-2 days. Return to the emergency department with any new or worsening symptoms. - Attestation Statements Document Initiated by Scribe: Yes Documenting Scribe: Alivia Barone Provider For Whom Riccoibe is Documenting (Include Credential): Diann Morales MD Scribe Attestation: Alivia Wyatt, scribed for Diann Morales MD on 03/27/18 at [id number]. Status of Scribe Document: Ready
[2018-03-27 22:14] LABS: ABS Basophils 0.1 10^3/ul (0-0.2); ABS Eosinophils 0.1 10^3/ul (0-0.6); ABS Lymphocytes 3.3 10^3/ul (1.0-4.8); ABS Monocytes 0.7 10^3/ul (0-0.8); ABS Neutrophils 6.8 10^3/ul (1.5-7.7); ABS Nucleated RBC 0 10^3/ul; Eosinophil % 0.5 %; Hematocrit 43 % (35-47); Hemoglobin 14.1 g/dl (12.0-16.0); Mean Corpuscular HGB Conc 33 g/dl (31-36); Mean Corpuscular Hemoglobin 30 pg (27-31); Mean Corpuscular Volume 92 fL (80-97); Mean Platelet Volume 8.9 fL (7.4-10.4); Nucleated Red Blood Cells % 0; Platelet Count 263 10^3/ul (150-450); Red Blood Count 4.67 10^6/ul (4.00-5.40); Red Cell Distribution Width 14 % (10.5-15)
[2018-03-27 22:26] LABS: Activated Partial Thrombo Time 33.4 seconds (26.0-36.3); INR 0.95 (0.77-1.02)
[2018-03-27 22:30] LABS: Albumin 4.3 g/dL (3.2-5.2); Albumin/Globulin Ratio 1.4 (1-3); BUN/Creatinine Ratio 18.7 (8-20); C Reactive Protein 18.21 mg/L (<8.01); Calcium 9.5 mg/dL (8.6-10.3); EGFR Non-African American 51.1 (>60); Globulin 3.1 g/dL (2-4); Magnesium 2.2 mg/dL (1.9-2.7); Potassium 4.1 mmol/L (3.5-5.0); Total Bilirubin 0.6 mg/dL (0.2-1.0); Total Protein 7.4 g/dL (6.4-8.9)
[2018-03-27] MEDS ORDERED: Iodixanol* (CONTRAST) 320 MG/ML 100 ML SDV IV ONE (22:32)
[2018-03-27 23:28] LABS: Urine Appearance Clear; Urine Bacteria Absent (Absent); Urine Bilirubin Negative (Negative); Urine Blood Negative (Negative); Urine Color Straw; Urine Glucose Negative (Negative); Urine Ketones Negative (Negative); Urine Nitrite Negative (Negative); Urine Protein Negative (Negative); Urine Red Blood Cell 1+(3-5/hpf) (Absent); Urine Specific Gravity 1.019 (1.010-1.030); Urine Urobilinogen Negative (Negative); Urine White Blood Cell 2+(11-20/hpf) (Absent)
[2018-03-27] MEDS ORDERED: Levofloxacin TAB* 500 MG PO ONE (23:35)
[2018-03-28 00:09] VITALS: BP 120/69
== END 2018-03-28 00:08 | disposition home or self-care (01) ==
LOC: ED 18:50
DX: N39.0 Urinary tract infection, site not specified (principal); Z90.49 Acquired absence of other specified parts of digestive tract; Z88.1 Allergy status to other antibiotic agents; Z88.5 Allergy status to narcotic agent; Z88.0 Allergy status to penicillin
CPT/HCPCS: 36415; 74177; 80053; 81003; 81015; 82150; 83690; 83735; 85025; 85610; 85730; 86140; 87086; 99283; Q9967

== ENCOUNTER 2018-04-29 03:55 | Emergency (ER) | payer MEDICARE ==
[2018-04-29 04:48] LABS: ABS Basophils 0 10^3/ul (0-0.2); ABS Eosinophils 0.1 10^3/ul (0-0.6); ABS Lymphocytes 2.1 10^3/ul (1.0-4.8); ABS Monocytes 0.6 10^3/ul (0-0.8); ABS Neutrophils 4.5 10^3/ul (1.5-7.7); ABS Nucleated RBC 0 10^3/ul; Eosinophil % 0.7 %; Hematocrit 41 % (35-47); Hemoglobin 13.4 g/dl (12.0-16.0); Lymphocyte % 28.8 %; Mean Corpuscular HGB Conc 33 g/dl (31-36); Mean Corpuscular Hemoglobin 30 pg (27-31); Mean Corpuscular Volume 92 fL (80-97); Nucleated Red Blood Cells % 0; Platelet Count 239 10^3/ul (150-450); Red Blood Count 4.46 10^6/ul (4.00-5.40); Red Cell Distribution Width 14 % (10.5-15); White Blood Count 7.3 10^3/ul (3.5-10.8)
[2018-04-29 05:05] LABS: Albumin 3.9 g/dL (3.2-5.2); Albumin/Globulin Ratio 1.4 (1-3); BUN/Creatinine Ratio 14.6 (8-20); EGFR African American 76.3 (>60); EGFR Non-African American 63.1 (>60); Globulin 2.8 g/dL (2-4); Potassium 3.8 mmol/L (3.5-5.0); Total Bilirubin 0.5 mg/dL (0.2-1.0); Total Protein 6.7 g/dL (6.4-8.9)
[2018-04-29 05:20] LABS: Activated Partial Thrombo Time 30.1 seconds (26.0-36.3); INR 0.87 (0.77-1.02)
[2018-04-29 05:38] LABS: TSH (Thyroid Stimulating Horm) 2.88 mcIU/mL (0.34-5.60)
[2018-04-29 06:54] VITALS: BP 127/82
--- NOTE | 2018-04-29 06:56 | ED ---
Palpitations / Dysrhythmia - HPI Summary HPI Summary: The patient is a 68 year old female who is presenting to the [facility] with a chief complaint of a heart palpitations. The patient reports of "arm tingling", left arm numbness, left arm pain, shoulder blade discomfort, and chills. The patient denies diaphoresis, nausea, dizziness, syncope and SOB. Prior to the onset of the symptoms the patient was asleep and then later awoke due to the heart palpitations. The patient stated her heart beat was "pounding" rapidly. Baby aspirin was taken upon the first sensation of heart palpitations. Patient does not require or take oxygen at home and the patient has not experienced symptoms like these in the past. The pain is rated to be 4/10. Symptoms aggravated by nothing. Symptoms alleviated by nothing. - History of Current Complaint Chief Complaint: EDDysrhythmPalp Time Seen by Provider: 04/29/18 04:06 Hx Obtained From: Patient Onset/Duration: Sudden Onset Character: Pounding Aggravating: Nothing Alleviating: Nothing Associated Signs & Symptoms: Negative - Allergy/Home Medications Allergies/Adverse Reactions: Allergies Allergy/AdvReac Type Severity Reaction Status Date / Time amoxicillin Allergy Mild Rash Verified 04/24/18 12:27 codeine AdvReac Severe made her Verified 04/24/18 12:27 hyper erythromycin base AdvReac Severe Palpitation Verified 04/24/18 12:27 s PMH/Surg Hx/FS Hx/Imm Hx Endocrine/Hematology History: Denies: Hx Diabetes Cardiovascular History: Denies: Hx Hypertension, Hx Pacemaker/ICD Respiratory History: Reports: Hx Pneumonia, Other Respiratory Problems/ Disorders - DX'D W/PNA 04/01/2016Saturday GI History: Reports: Hx Gall Bladder Disease, Hx Gastroesophageal Reflux Disease History: Denies: Hx Dialysis, Hx Renal Disease Musculoskeletal History: Reports: Hx Arthritis, Hx Back Problems, Hx Orthopedic Injury Sensory History: Reports: Hx Cataracts, Hx Contacts or Glasses - glasses for reading Denies: Hx Hearing Aid Opthamlomology History: Reports: Hx Cataracts, Hx Contacts or Glasses - glasses for reading Neurological History: Reports: Other Neuro Impairments/Disorders - PAIN CLINIC PT Denies: Hx Migraine Psychiatric History: Denies: Hx Panic Disorder - Cancer History Hx Chemotherapy: No Hx Radiation Therapy: No - Surgical History Surgery Procedure, Year, and Place: Cholecystectomy (open), 1989, [facility] L5 discectomy, 1994, [facility]. Right knee arthroscopic surgery, 2009, [facility]. Left eye cataract removal, 2010, [facility]. Right eye cataract removal, 2015, [facility]. hernia repair 07/25 Hx Anesthesia Reactions: No Infectious Disease History: No Infectious Disease History: Denies: Traveled Outside the [place] in Last 30 Days - Family History Known Family History: Positive: Hypertension, Diabetes, Other - Breast CA - Social History Occupation: Retired Lives: With Family Alcohol Use: Occasionally Alcohol Amount: 1 drink/week Hx Substance Use: No Substance Use Type: Reports: None Substance Use Comment - Amount & Last Used: oxycodone Hx Tobacco Use: No Smoking Status (MU): Never Smoked Tobacco Review of Systems Positive: Chills. Negative: Skin Diaphoresis Eyes: Negative ENT: Negative Positive: Palpitations Negative: Shortness Of Breath Negative: Nausea Genitourinary: Negative Musculoskeletal: Other - Shoulder blade discomfort; left arm pain Skin: Negative Neurological: Other - Negative dizziness Positive: Numbness - left arm (tingling). Negative: Syncope Psychological: Normal All Other Systems Reviewed And Are Negative: Yes Physical Exam - Summary Physical Exam Summary: VITAL SIGNS: Reviewed. GENERAL: Patient is a well-developed and nourished (FEMALE) who is lying comfortable in the stretcher. Patient is not in any acute respiratory distress. HEAD AND FACE: No signs of trauma. No ecchymosis, hematomas or skull depressions. No sinus tenderness. EYES: PERRLA, EOMI x 2, No injected conjunctiva, no nystagmus. EARS: Hearing grossly intact. Ear canals and tympanic membranes are within normal limits. MOUTH: Oropharynx within normal limits. NECK: Supple, trachea is midline, no adenopathy, no JVD, no carotid bruit, no c- spine tenderness, neck with full ROM. CHEST: Symmetric, no tenderness at palpation LUNGS: Clear to auscultation bilaterally. No wheezing or crackles. CVS: Regular rate and rhythm, S1 and S2 present, no murmurs or gallops appreciated. ABDOMEN: Soft, non-tender. No signs of distention. No rebound no guarding, and no masses palpated. Bowel sounds are normal. EXTREMITIES: FROM in all major joints, no edema, no cyanosis or clubbing. NEURO: Alert and oriented x 3. No acute neurological deficits. Speech is normal and follows commands. SKIN: Dry and warm Triage Information Reviewed: Yes Vital Signs On Initial Exam: Initial Vitals Temp Pulse Resp BP Pulse Ox 98.6 F 73 16 142/86 98 04/29/18 03:58 04/29/18 03:58 04/29/18 03:58 04/29/18 03:58 04/29/18 03:58 Vital Signs Reviewed: Yes Diagnostics - Vital Signs Vital Signs Temp Pulse Resp BP Pulse Ox 04/29/18 06:01 73 17 121/78 96 04/29/18 06:00 75 14 98 04/29/18 05:31 71 9 139/78 99 04/29/18 05:01 71 10 138/90 95 04/29/18 05:00 74 13 97 04/29/18 04:31 70 12 133/94 96 04/29/18 04:00 73 142/86 98 04/29/18 03:58 98.6 F 73 16 142/86 98 - Laboratory Lab Results: Lab Results 04/29/18 04/29/18 04/29/18 Range/Units 04:40 04:40 04:40 WBC 7.3 (3.5-10.8) 10^3/ul RBC 4.46 (4.00-5.40) 10^6/ul Hgb 13.4 (12.0-16.0) g/dl Hct 41 (35-47) % MCV 92 (80-97) fL MCH 30 (27-31) pg MCHC 33 (31-36) g/dl RDW 14 (10.5-15) % Plt Count 239 (150-450) 10^3/ul MPV 9.0 (7.4-10.4) fL Neut % (Auto) 61.8 % Lymph % (Auto) 28.8 % [place] % (Auto) 8.2 % Eos % (Auto) 0.7 % Baso % (Auto) 0.5 % Absolute Neuts (auto) 4.5 (1.5-7.7) 10^3/ul Absolute Lymphs (auto) 2.1 (1.0-4.8) 10^3/ul Absolute Monos (auto) 0.6 (0-0.8) 10^3/ul Absolute Eos (auto) 0.1 (0-0.6) 10^3/ul Absolute Basos (auto) 0 (0-0.2) 10^3/ul Absolute Nucleated RBC 0 10^3/ul Nucleated RBC % 0 INR (Anticoag Therapy) 0.87 (0.77-1.02) APTT 30.1 (26.0-36.3) seconds Sodium 144 (135-145) mmol/L Potassium 3.8 (3.5-5.0) mmol/L Chloride 111 (101-111) mmol/L Carbon Dioxide 26 (22-32) mmol/L Anion Gap 7 (2-11) mmol/L BUN 13 (6-24) mg/dL Creatinine 0.89 (0.51-0.95) mg/dL Est GFR ( Amer) 76.3 (>60) Est GFR (Non-Af Amer) 63.1 (>60) BUN/Creatinine Ratio 14.6 (8-20) Glucose 110 H (70-100) mg/dL Calcium 9.0 (8.6-10.3) mg/dL Magnesium 2.0 (1.9-2.7) mg/dL Total Bilirubin 0.50 (0.2-1.0) mg/dL AST 31 (13-39) U/L ALT 40 (7-52) U/L Alkaline Phosphatase 49 (34-104) U/L Troponin I 0.00 (<0.04) ng/mL Total Protein 6.7 (6.4-8.9) g/dL Albumin 3.9 (3.2-5.2) g/dL Globulin 2.8 (2-4) g/dL Albumin/Globulin Ratio 1.4 (1-3) TSH 2.88 (0.34-5.60) mcIU/mL 04/29/18 Range/Units 06:10 WBC (3.5-10.8) 10^3/ul RBC (4.00-5.40) 10^6/ul Hgb (12.0-16.0) g/dl Hct (35-47) % MCV (80-97) fL MCH (27-31) pg MCHC (31-36) g/dl RDW (10.5-15) % Plt Count (150-450) 10^3/ul MPV (7.4-10.4) fL Neut % (Auto) % Lymph % (Auto) % [place] % (Auto) % Eos % (Auto) % Baso % (Auto) % Absolute Neuts (auto) (1.5-7.7) 10^3/ul Absolute Lymphs (auto) (1.0-4.8) 10^3/ul Absolute Monos (auto) (0-0.8) 10^3/ul Absolute Eos (auto) (0-0.6) 10^3/ul Absolute Basos (auto) (0-0.2) 10^3/ul Absolute Nucleated RBC 10^3/ul Nucleated RBC % INR (Anticoag Therapy) (0.77-1.02) APTT (26.0-36.3) seconds Sodium (135-145) mmol/L Potassium (3.5-5.0) mmol/L Chloride (101-111) mmol/L Carbon Dioxide (22-32) mmol/L Anion Gap (2-11) mmol/L BUN (6-24) mg/dL Creatinine (0.51-0.95) mg/dL Est GFR ( Amer) (>60) Est GFR (Non-Af Amer) (>60) BUN/Creatinine Ratio (8-20) Glucose (70-100) mg/dL Calcium (8.6-10.3) mg/dL Magnesium (1.9-2.7) mg/dL Total Bilirubin (0.2-1.0) mg/dL AST (13-39) U/L ALT (7-52) U/L Alkaline Phosphatase (34-104) U/L Troponin I 0.02 (<0.04) ng/mL Total Protein (6.4-8.9) g/dL Albumin (3.2-5.2) g/dL Globulin (2-4) g/dL Albumin/Globulin Ratio (1-3) TSH (0.34-5.60) mcIU/mL Result Diagrams: 04/29/18 04:40 04/29/18 04:40 Lab Statement: Any lab studies that have been ordered have been reviewed, and results considered in the medical decision making process. - EKG First Summary of EKG Findings: An EKG at 0438 reveals sinus rhythm at 70 bpm with normal axis, normal intervals, and no ischemic changes. Course/Dx - Course Course Of Treatment: The patient is a 68 year old female who is presenting to the [facility] with a chief complaint of heart palpitations. The patient recieved an EKG in the [facility] which was unremarkable. Blood work and lab results showed unremarkable findings. We recommended to the patient that a holter monitor may be needed. We discussed following up with a supply chain coordinator in 1 to 2 days. Upon the patients stay in the [facility], the patients conditioned improved and is currently pain free and asymptomatic patient will be discharged home with a dx of palpitations. - Diagnoses Provider Diagnoses: Heart palpitations Discharge - Sign-Out/Discharge Documenting (check all that apply): Patient Departure - Discharge Home Patient Received Moderate/Deep Sedation with Procedure: No - Discharge Plan Condition: Stable Disposition: HOME Patient Education Materials: Heart Palpitations (ED) Referrals: Malini Coates MD [Medical Doctor] - Additional Instructions: RETURN TO THE EMERGENCY DEPARTMENT FOR CHANGING OR WORSENING SYMPTOMS. FOLLOW UP WITH the supply chain coordinator IN 1-2 DAYS. We do recommend a holter monitor for the patients palpitations. - Attestation Statements Document Initiated by Riccoibe: Yes Documenting Scribe: Stefano Bailey Provider For Whom Emorye is Documenting (Include Credential): Dr. Froilan Chackoibbeverly Attestation: Edmundo, Stefano Bailey, cosmo for Dr. Diann Morales on 04/29/18 at 0703. Status of Scribe Document: Ready
== END 2018-04-29 06:51 | disposition home or self-care (01) ==
LOC: ED 03:55
DX: R00.2 Palpitations (principal); Z88.5 Allergy status to narcotic agent; Z88.0 Allergy status to penicillin
CPT/HCPCS: 36415; 80053; 83735; 84443; 84484; 85025; 85610; 85730; 93005; 99283

== ENCOUNTER 2019-03-12 10:02 | Emergency (ER) | payer MEDICARE ==
--- NOTE | 2019-03-12 11:56 | UC ---
Lower Extremity/Ankle HPI - HPI Summary HPI Summary: [employer] note - pt with pain in her right calf/side of her leg. started about 1800 last night. no swelling noted. no known injury. Pleasant 68 yo female c/o pain R lat leg since last evening. Pain is more or less constant, but increases sporadically with sharp shooting pain. Position does not seem to help, but lying on back last night was the only tolerable position to try to sleep. No focal weakness. Denies groin pain, b/b leakage. No prior hx of pain like this, but does have lumbar stenosis, and is s/p L4-5 and L5-S1 discectomy. Has been taking alleve but has not helped. Denies recent illness, fever. No rash. No recent travel. 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 - History of Current Complaint Chief Complaint: UCLowerExtremity Stated Complaint: LEG PAIN Time Seen by Provider: 03/12/19 11:53 Hx Obtained From: Patient Pain Intensity: 8 - Allergies/Home Medications Allergies/Adverse Reactions: Allergies Allergy/AdvReac Type Severity Reaction Status Date / Time amoxicillin Allergy Mild Rash Verified 03/12/19 10:36 codeine AdvReac Severe made her Verified 03/12/19 10:36 hyper erythromycin base AdvReac Severe Palpitation Verified 03/12/19 10:36 s Home Medications: Home Medications Metoprolol Succinate 1 tab PO DAILY 03/12/19 [History Confirmed 03/12/19] PMH/Surg Hx/FS Hx/Imm Hx Previously Healthy: No - see hpi and below - Surgical History Surgical History: Yes Surgery Procedure, Year, and Place: Cholecystectomy (open), 1989, [facility] [place]. L5 discectomy, 1994, [facility]. Right knee arthroscopic surgery, 2009, [facility]. Left eye cataract removal, 2010, [facility] [place]. Right eye cataract removal, 2015, [facility]. hernia repair 07/25 - Family History Known Family History: Positive: Hypertension, Diabetes, Other - Breast CA - Social History Alcohol Use: Occasionally Alcohol Amount: 1 drink/week Substance Use Type: None Substance Use Comment - Amount & Last Used: oxycodone Smoking Status (MU): Never Smoked Tobacco - Immunization History Most Recent Influenza Vaccination: 12/2015 Most Recent Tetanus Shot: unknown Most Recent Pneumonia Vaccination: 2004 Review of Systems All Other Systems Reviewed And Are Negative: Yes Constitutional: Positive: Other - see hpi Skin: Positive: Other - see hpi Eyes: Positive: Negative ENT: Positive: Negative Respiratory: Positive: Negative Cardiovascular: Positive: Negative Gastrointestinal: Positive: Negative Genitourinary: Positive: Negative - see hpi Motor: Positive: Other - see hpi Neurovascular: Positive: Other Musculoskeletal: Positive: Other: - see hpi Neurological: Positive: Other - see hpi Psychological: Positive: Negative Is Patient Immunocompromised?: No Physical Exam Triage Information Reviewed: Yes Appearance: Well-Nourished, Other: - sitting up, able to get up on exam table but uncomfortable. appears uncomfortable with sitting too long Vital Signs: Initial Vital Signs Temp 98.3 F 03/12/19 10:32 Pulse 69 03/12/19 10:32 Resp 18 03/12/19 10:32 BP 127/71 03/12/19 10:32 Pulse Ox 97 03/12/19 10:32 Vital Signs Reviewed: Yes Eye Exam: Normal ENT Exam: Normal Neck exam: Other - denies pain, + arthritic appearance Respiratory Exam: Normal Respiratory: Positive: Chest non-tender, Lungs clear, Normal breath sounds, No respiratory distress, No accessory muscle use Cardiovascular Exam: Normal Cardiovascular: Positive: RRR, Pulses Normal, Brisk Capillary Refill Abdominal Exam: Normal Abdomen Description: Positive: Nontender Musculoskeletal Exam: Other - + low back tenderness Feet both warm to touch. Pulse dp faint, not palp pt. Cap refill good. + BLE venous insuff changes with venous varicosities, and BLE edema (but not predominantly unilateral). No bruna homans. Knee without laxity, not focally tender. + tender RLE in the L4- S2 distribution. Denies b/b issues, see hpi Gait slow, limps, but steady Neurological Exam: Other Psychological Exam: Normal - nad Skin Exam: Normal - nondiaphoretic, no visible or reported rash Lower Extremity Course/Dx - Course Course Of Treatment: L4 - S2 distribution pain U/s RLE neg dvt ct lumbar noncont (see meditech) - S/p laminectomy at L4-5, L5-S1 region. Severe narrowing of the central canal at L3-L4. [place] neural foraminal narrowing. D/w pt and spouse coa / tx plan. Narc talk nad. Reviewed meds / all including prior rxn codeine. [place] x 1 here in [place], no issues. Pain better s/p norco x 1. Has appt with Dr. Burkett in 2 weeks. Plans to f/u accordingly. Does not wish to f/u with her prior neurosurgeon, she will check with PCP re referral options. Will f/u with PCP, Dr. Ponce. Will start prednisone taper. D/w pt and spouse. Reviewed narcotic precautions. Including need for obstipation mitigation. Aware of the need to go to the Emergency Department for any worse or new problems. Questions as posed answered to the best of my ability. - Differential Dx/Diagnosis Provider Diagnosis: Spinal stenosis of lumbar region at multiple levels, Back pain, Leg pain, right Discharge ED - Sign-Out/Discharge Documenting (check all that apply): Patient Departure All imaging exams completed and their final reports reviewed: Yes - Discharge Plan Condition: Improved Disposition: HOME Prescriptions: HYDROcodone/ACETAMIN 5-325 MG* [[place] 5-325 TAB*] 1 tab PO Q8H PRN #30 tab MDD 3 PRN Reason: Pain - Moderate predniSONE 10 mg TAB [Deltasone 10 MG TAB*] 10 mg PO DAILY #20 tab Patient Education Materials: Lumbar Spinal Stenosis (ED), Degenerative Disc Disease (ED) Referrals: Abdelrahman Ponce MD [Primary Care Provider] - Tommy Burkett MD [Medical Doctor] - Additional Instructions: Follow up with Dr. Burkett as scheduled this month. Please follow up with Dr. Ponce as well, in the next 1-2 weeks if possible. Hydrate. Please go to the Emergency Department for any worse or new problems, including albeit not limited to worse or new pain, weakness, bowel / bladder pain or leakage. Blood work in the lab. - Billing Disposition and Condition Condition: IMPROVED Disposition: Home
[2019-03-12] MEDS ORDERED: HYDROcodone/ACETAMIN 5-325 MG* 1 TAB PO ONE (12:45)
[2019-03-12 14:08] VITALS: BP 126/73
[2019-03-12 16:52] LABS: ABS Eosinophils 0.1 10^3/ul (0-0.6); ABS Lymphocytes 2.5 10^3/ul (1.0-4.8); ABS Monocytes 0.6 10^3/ul (0-0.8); ABS Neutrophils 4.3 10^3/ul (1.5-7.7); Eosinophil % 1.1 %; Hematocrit 43 % (35-47); Hemoglobin 14.4 g/dL (12.0-16.0); Lymphocyte % 33.2 %; Mean Corpuscular HGB Conc 33 g/dL (31-36); Mean Corpuscular Hemoglobin 31 pg (27-31); Mean Corpuscular Volume 94 fL (80-97); Mean Platelet Volume 9.2 fL (7.4-10.4); Platelet Count 273 10^3/uL (150-450); Red Cell Distribution Width 13 % (10-15); White Blood Count 7.5 10^3/uL (3.5-10.8)
[2019-03-12 19:05] LABS: Erythrocyte Sed Rate 29 mm/Hr (0-29)
== END 2019-03-12 14:29 | disposition home or self-care (01) ==
LOC: UCEAST 10:02
DX: M79.604 Pain in right leg (principal); M48.061 Spinal stenosis, lumbar region without neurogenic claudication; M54.5 Low back pain; Z88.0 Allergy status to penicillin; Z88.1 Allergy status to other antibiotic agents; Z88.5 Allergy status to narcotic agent
CPT/HCPCS: 36415; 72131; 85025; 85652; 86140; 99212; G0463

== ENCOUNTER 2021-05-01 10:47 | Observation (INO) ==
[2021-05-01 11:26] LABS: ABS Basophils 0.1 10^3/ul (0-0.2); ABS Lymphocytes 1.6 10^3/ul (1.0-4.8); ABS Monocytes 0.4 10^3/ul (0-0.8); ABS Neutrophils 3.9 10^3/ul (1.5-7.7); Eosinophil % 0.6 %; Hematocrit 42 % (35-47); Lymphocyte % 27.4 %; Mean Corpuscular HGB Conc 34 g/dL (31-36); Mean Corpuscular Hemoglobin 31 pg (27-31); Mean Corpuscular Volume 93 fL (80-97); Mean Platelet Volume 8.7 fL (7.4-10.4); Nucleated Red Blood Cells % 0.1; Platelet Count 252 10^3/uL (150-450); Red Cell Distribution Width 14 % (10-15)
[2021-05-01 11:33] LABS: INR 1.1 (0.86-1.15)
[2021-05-01 11:55] LABS: Albumin 3.9 g/dL (3.2-5.2); Albumin/Globulin Ratio 1.4 (1-3); Calcium 9.4 mg/dL (8.6-10.3); Globulin 2.8 g/dL (2-4); Potassium 3.8 mmol/L (3.5-5.0); Total Bilirubin 0.6 mg/dL (0.2-1.0); Total Protein 6.7 g/dL (6.4-8.9); eGFR CKD-EPI 61.7 (>60)
[2021-05-01] MEDS ORDERED: Ondansetron 4 mg VIAL 2 MG/ML 2 ml VIAL IV ONE (12:02)
[2021-05-01] MEDS ORDERED: Acetaminophen IV 1 GM/100ML 100 ML IV ONE (12:15)
[2021-05-01] MEDS ORDERED: Iohexol 350 (CONTRAST) 500 ML MDV IV ONE (12:28)
[2021-05-01] MEDS ORDERED: Al Hydrox/Mg Hydrox/Simet LIQ 30 ML UDC PO ONE (14:06)
[2021-05-01 15:39] LABS: HDL Cholesterol 45.9 mg/dL
[2021-05-01] MEDS ORDERED: Lactated Ringers 500 ml BAG 500 ML IV SCH (16:35)
[2021-05-02 06:10] LABS: Hematocrit 44 % (35-47); Hemoglobin 14.5 g/dL (12.0-16.0); Mean Corpuscular HGB Conc 33 g/dL (31-36); Mean Corpuscular Hemoglobin 31 pg (27-31); Mean Corpuscular Volume 93 fL (80-97); Mean Platelet Volume 8.9 fL (7.4-10.4); Platelet Count 258 10^3/uL (150-450); Red Blood Count 4.69 10^6 /uL (3.70-4.87); Red Cell Distribution Width 14 % (10-15); White Blood Count 6.1 10^3/uL (3.5-10.8)
[2021-05-02 06:29] LABS: Calcium 9.4 mg/dL (8.6-10.3); Magnesium 2.3 mg/dL (1.9-2.7); Potassium 4.2 mmol/L (3.5-5.0); eGFR CKD-EPI 55.5 (>60)
[2021-05-02] MEDS ORDERED: Aminophylline 25 MG/ML VIAL ONE (12:55)
[2021-05-02] MEDS ORDERED: Regadenoson 0.4 MG/5 ML SYRINGE ONE (12:55)
[2021-05-02 16:17] VITALS: BP 152/53
== END 2021-05-02 18:03 | disposition home or self-care (01) ==
LOC: EDHOLD 10:47 → ED 10:47 → MEDTELE 17:39
PROVIDERS: ADMIT Student in an Organized Health Care Education/Training Program; ATTEND Internal Medicine